=== PATIENT | female | born 1990 | race Caucasian/White ===

== ENCOUNTER → 2018-04-09 13:52 | Outpatient (CLI) | payer OTHER, SELFPAY ==
[2018-04-09 16:15] LABS: Progesterone Level 0.57 ng/mL (See Comment)
[2018-04-12 15:10] LABS: HPV Reflexed? NOT INDICATED
== END ==
PROVIDERS: Family Provider Family Medicine; PCP Family Medicine; Referring Provider Obstetrics & Gynecology; Visit Provider Obstetrics & Gynecology
DX: N97.0 Female infertility associated with anovulation (principal)
CPT/HCPCS: 84144; 87624; 88175; G0145

== ENCOUNTER → 2019-08-22 16:03 | Outpatient (CLI) | payer BC, SELFPAY ==
[2019-08-22 18:23] LABS: Progesterone Level 0.83 ng/mL (See Comment); T3 Total - Triiodothyronine 1.31 ng/mL (0.6-1.81)
[2019-08-22 18:27] LABS: T4 Total, Thyroxin 8.4 ug/dL (4.8-13.9)
[2019-08-26 14:07] LABS: Thyroid Peroxidase AB 11 IU/mL (0-34)
[2019-08-26 20:58] LABS: SAR-COV-2 IGG ANTIBODY Negative (Negative); Thyroglobulin Antibody < 1.0 IU/mL (0.0-0.9)
== END ==
PROVIDERS: PCP Family Medicine; Visit Provider Family Medicine
DX: N93.9 Abnormal uterine and vaginal bleeding, unspecified (principal); E28.2 Polycystic ovarian syndrome; E03.9 Hypothyroidism, unspecified; N92.0 Excessive and frequent menstruation with regular cycle; Z20.828 Contact with and (suspected) exposure to other viral communicable diseases
CPT/HCPCS: 36415; 84144; 84436; 84480; 84481; 86376; 86769; 86800

== ENCOUNTER 2019-09-26 13:50 | Emergency (ER) | payer BC, SELFPAY ==
[2019-08-28 09:39] VITALS: BMI 46.0
[2019-09-26 13:50] VITALS: BP 125/72; PULSE 65; RESP 16; TEMP 36.8; O2SAT 99; BMI 43.5
--- NOTE | 2019-09-26 14:02 | US_ITS ---
STUDY: ULTRASOUND TRANSVAGINAL CLINICAL: Female, 29 years old. HEAVY BLEEDING 2 DAYS LMP Monday09/23/2019 TECHNIQUE: Transvaginal COMPARISON: None. FINDINGS: Normal uterine size measuring 8.2 x 4.9 x 4.1 cm in maximal craniocaudal dimension. There are no myometrial masses. Normal endometrial thickness measuring 8 mm. There are no endometrial masses, and there is no fluid in the endometrial cavity. Normal uterine cervix. Normal right ovary, measuring 3.8 x 2.5 x 2.3 cm. There are multiple follicles without a dominant cyst. Normal left ovary, measuring 4.0 x 2.3 x 2.6 cm. There are multiple follicles without a dominant cyst. There is no free fluid in the pelvis. Polycystic ovary disease: No. US/Transvaginal Non- IMPRESSION: Normal transvaginal pelvic ultrasound. Electronically Signed: Sukh Payne MD at 16:07 EDT Tel , Service support ,
--- NOTE | 2019-09-26 14:05 | ED.DCSUM_ITS ---
History of Present Illness Chief Complaint: Vag Bleeding Onset: Days Context: Gradual Onset Timing: Intermittent Current Severity: Moderate Maximum Severity: Moderate Narrative: The patient is a 29-year-old female who presents to the emergency department with heavy vaginal bleeding. Patient states she began to have abnormal menstruation about 2 months ago. She was having very long menstrual periods. She states that she followed up with AUDIO PRODUCTION ENGINEER. She was prescribed progesterone. She took it until Monday, forgot the next 2 doses, and then began to have heavy bleeding. She states over the past 24 hours, she is gone through about a pad an hour. She has had some mild cramping but denies any pain. She does have a history of PCOS. She does not think she is . She has no history of anemia or blood dyscrasia. Prior similar symptoms: No Recent Illness/Hospitalization: No Past Medical History - Allergies and Home Meds Allergies/Adverse Reactions: Allergies doxycycline Adverse Reaction (Intermediate, Verified 09/26/19 13:53) vomiting/nausea Primary Care Physician: Patsy Giles MD [STAFF PHYSICIAN] - Prior records reviewed: Yes Past Medical History: None Surgical History: noncontributory Smoking Status: Never smoker Review of Systems General: Denies: Chills, Fever, Sweats Eyes: Denies: Visual changes - bilaterally, Diplopia ENT: Denies: Rhinorrhea, Sore throat Cardiovascular: Denies: Chest pain, Palpitations Respiratory: Denies: Dyspnea, Cough, Dyspnea on exertion Gastrointestinal: Denies: Abdominal pain, Nausea, Vomiting, Diarrhea, Melena, Hematochezia Genitourinary: Denies: Dysuria, Hematuria, Frequency Musculoskeletal: Denies: Back pain, Extremity Pain Skin: Denies: Rash, Wounds Neurological: Denies: Headache, Weakness, Numbness Physical Exam Vital Signs/Narrative: Vital Signs Temp Pulse Resp BP Pulse Ox 09/26/19 13:50 98.2 F 65 16 125/72 H 99 Inital Vital Signs reviewed: Yes General: Well nourished, Well developed, No Acute Distress Head: Normocephalic, Atraumatic Eyes: Perrl, EOMI ENT: Moist mucous membranes, No rhinorrhea Neck: Supple, Nontender Cardiovascular: Regular rate, Regular rhythm, No murmurs Respiratory: No distress, CTA bilaterally, Chest nontender Abdomen: Soft, Nontender, Nondistended, Normal bowel sounds Back: Nontender, Normal Inspection Extremities: Nontender, No edema Skin: Normal color, No rash Neurological: Alert, Oriented x3, Cranial nerves II-XII grossly intact, Normal Strength, Normal Sensation Psychological: Normal affect, Normal Mood Diagnostic/Tx/Re-eval Clinical Impression(s) from Imaging Studies Transvaginal US 09/26/19 14:02 IMPRESSION: Normal transvaginal pelvic ultrasound. Electronically Signed: Sukh Payne MD at 16:07 EDT Tel , Service support , Abnormal Lab Results 09/26/19 09/26/19 14:20 14:20 WBC 5.5 RBC 4.70 Hgb 13.8 Hct 41.7 MCV 88.7 MCH 29.4 MCHC 33.1 RDW Std Deviation 42.2 RDW Coeff of Janay 13.1 Plt Count 196 MPV 9.9 Immature Gran % (Auto) 0.400 Neut % (Auto) 55.8 Lymph % (Auto) 32.5 [place] % (Auto) 7.5 Eos % (Auto) 3.3 Baso % (Auto) 0.5 Absolute Neuts (auto) 3.1 Absolute Lymphs (auto) 1.78 Nucleated RBC % 0 Serum , Qual NEGATIVE - Medical Decision Making The patient presents with heavy vaginal bleeding. She had just finished progesterone therapy, but missed 2 doses. She is not hypotensive or tachycardic. Screening labs were obtained. Hemoglobin is normal. I did obtain ultrasound which shows normal endometrium. It does document her polycystic ovarian disease which is known. I discussed the patient with Dr. Ricardo Santos, her AUDIO PRODUCTION ENGINEER. She is comfortable with plan to resume the progesterone therapy and follow-up as an outpatient. Patient is agreeable with this plan and will be discharged home. Impression 1. Dysfunctional uterine bleeding ED Disposition - Plan for ED Patient: Instructions: ED Bleed Irregular Vaginal Referrals: Patsy Giles MD [STAFF PHYSICIAN] -
[2019-09-26] MEDS: 0.9% Normal Saline 1,000 ML 1000 ML IV (14:28)
[2019-09-26 14:29] LABS: Absolute Lymphocyte Count 1.78 X10^3/uL (0.83-4.51); Absolute Neutrophil Count 3.1 X10^3/uL (2.0-7.7); Basophil# 0.03 X10^3/uL; Basophil% 0.5 % (0-1); Eosinophil# 0.18 X10^3/uL; Eosinophils% 3.3 % (0-5); Hematocrit 41.7 % (37-47); Hemoglobin 13.8 g/dL (12.0-15.0); Lymphocyte # 1.78 X10^3/ul (4.0); Lymphocyte % 32.5 % (19-41); Mean Corp Hgb Conc 33.1 g/dL (32-36); Mean Corpuscular Hgb 29.4 pg (27.0-32.0); Mean Corpuscular Volume 88.7 fL (81-99); Mean Platelet Vol. 9.9 fl (6.2-12.0); Monocyte# 0.41 X10^3/uL; Monocyte% 7.5 % (0-10); NRBC Flagged by Analyzer 0 % (0-5); Neutrophil # 3.06 X10^3/uL (2.7-7.7); Neutrophil % 55.8 % (47-70); Platelet Count 196 K/mm3 (150-450); RBC Distribution Width CV 13.1 % (11.6-14.6); RBC Distribution Width SD 42.2 fl (35.1-43.9); White Blood Count 5.5 K/mm3 (4.4-11.0)
[2019-09-26 15:20] LABS: Internal QC Validated? YES +Cl - CLEAR BKGD; Pregnancy, Serum, hCG Quali. NEGATIVE Negative
[2019-09-26 16:36] VITALS: BP 110/77; PULSE 69; RESP 17; O2SAT 100
== END 2019-09-26 16:40 | disposition home or self-care (01) ==
LOC: ED 14:54
PROVIDERS: Emergency Provider Emergency Medicine; PCP Family Medicine
DX: N93.8 Other specified abnormal uterine and vaginal bleeding (principal)
CPT/HCPCS: 76830; 84703; 85025; 96360; 96361; 99283; J7030; A4216

== ENCOUNTER → 2020-01-13 14:47 | Outpatient (CLI) | payer OTHER, SELFPAY ==
[2019-08-28 09:39] VITALS: BMI 46.0
[2019-10-03 08:49] VITALS: BMI 43.5
--- NOTE | 2020-01-13 14:59 | US_ITS ---
STUDY: ULTRASOUND TRANSVAGINAL CLINICAL: Female, 29 years old. Infertility. TECHNIQUE: Transvaginal COMPARISON: 09/26/2019. FINDINGS: The uterus is anteverted, measuring 9.5 x 5.5 x 4.5 cm. There is no visualized myometrial mass. The endometrium measures 5 mm in thickness and is hyperechoic. There are no endometrial masses, and there is no fluid in the endometrial cavity. There is evidence of a permanent cerclage within the cervix. Normal right ovary, measuring 3.8 x 2.5 x 2.4 cm. There are multiple follicles without a dominant cyst. Normal left ovary, measuring 3.5 x 2.9 x 2.3 cm. There are multiple follicles without a dominant cyst. There is no free fluid in the pelvis. US/Transvaginal Non- IMPRESSION: 1. Multiple bilateral ovarian follicles. Question PCOS. 2. Normal uterus with evidence of cervical cerclage. 3. No major interval change when compared to the previous examination. Electronically Signed: Gómez Spence DO at 16:28 EDT Tel [phone], Service support ,
[2020-01-13 15:52] LABS: hCG Titer Quant., Serum < 1 mIU/mL (1-3)
[2020-01-13 16:32] LABS: Estradiol 194.7 pg/mL; Follicle Stimulating Hormone 4.1 mIU/mL; Luteinizing Hormone 12.4 mIU/mL; Thyroid Stim Hormone (TSH) 1.41 uIU/mL (0.358-3.74)
[2020-01-14 16:19] LABS: Progesterone Level 0.59 ng/mL (See Comment)
== END ==
PROVIDERS: Obstetrics & Gynecology; PCP Family Medicine; Referring Provider Nurse Practitioner Women's Health; Visit Provider Nurse Practitioner Women's Health
DX: N97.9 Female infertility, unspecified (principal)
CPT/HCPCS: 36415; 76830; 82670; 83001; 83002; 84144; 84443; 84702

== ENCOUNTER → 2020-01-20 14:44 | Outpatient (CLI) | payer OTHER, SELFPAY ==
[2019-10-03 08:49] VITALS: BMI 43.5
--- NOTE | 2020-01-20 14:45 | US_ITS ---
STUDY: ULTRASOUND OF THE FEMALE PELVIS - COMPLETE REASON FOR EXAM: Female, 29 years old. INFERTILITY, HX OF PERMANENT CERVICAL CERCLAGE LMP: 01/10/2020. TECHNIQUE: Transvaginal TECHNICAL QUALITY: Adequate. COMPARISON: Comparison is made with prior study dated 01/13/2020. FINDINGS: The uterus is anteverted and is in a midline position. The uterus measures 6.4 cm x 5.3 cm x 4.8 cm. Normal uterine cervix. The endometrium measures 10.2 mm in thickness, and is hyperechoic. There is no demonstrated endometrial mass. There is no demonstrated myometrial mass. I.U.D. - The patient does not have an I.U.D. once again, there is evidence of a cervical cerclage. The right ovary is visualized. The right ovary measures 2.8 cm x 2.6 cm x 2.9 cm. Multiple follicles are seen in the periphery of the right ovary. There is no visualized right adnexal mass or complex lesion. There is normal arterial and normal venous vascularity. The left ovary is visualized. The left ovary measures 2.6 cm x 3.4 cm x 2.1 cm. Multiple small follicles are seen within the periphery of the left ovary. There is no visualized left adnexal mass or complex lesion. There is normal arterial and normal venous vascularity. There is minimal fluid in the cul-de-sac. US/Transvaginal Non- IMPRESSION: Minimal amount of fluid in the pelvis. Multiple small follicles seen in the periphery of both ovaries. Electronically Signed: Gilmar Nath, at 15:33 EDT , Service support ,
[2020-01-20 17:26] LABS: Estradiol 562.1 pg/mL; Luteinizing Hormone 7.1 mIU/mL
[2020-01-20 17:35] LABS: Progesterone Level 0.25 ng/mL (See Comment)
== END ==
PROVIDERS: Obstetrics & Gynecology; PCP Family Medicine; Referring Provider Nurse Practitioner Women's Health; Visit Provider Nurse Practitioner Women's Health
DX: N97.9 Female infertility, unspecified (principal)
CPT/HCPCS: 36415; 76830; 82670; 83002; 84144

== ENCOUNTER → 2020-02-03 09:45 | Outpatient (CLI) | payer OTHER, SELFPAY ==
[2019-10-03 08:49] VITALS: BMI 43.5
[2020-02-03 12:54] LABS: Estradiol 343.3 pg/mL
[2020-02-03 13:28] LABS: hCG Titer Quant., Serum 30 mIU/mL (1-3)
[2020-02-03 19:57] LABS: Progesterone Level 80.12 ng/mL (See Comment)
== END ==
PROVIDERS: PCP Family Medicine
DX: E28.9 Ovarian dysfunction, unspecified (principal); Z33.1 Pregnant state, incidental
CPT/HCPCS: 36415; 82670; 84144; 84702

== ENCOUNTER → 2020-02-05 08:13 | Outpatient (CLI) | payer OTHER, SELFPAY ==
[2019-10-03 08:49] VITALS: BMI 43.5
[2020-02-05 08:49] LABS: hCG Titer Quant., Serum 58 mIU/mL (1-3)
[2020-02-05 09:21] LABS: Progesterone Level 62.43 ng/mL (See Comment)
== END ==
PROVIDERS: PCP Family Medicine; Referring Provider Obstetrics & Gynecology Reproductive Endocrinology; Visit Provider Obstetrics & Gynecology Reproductive Endocrinology
DX: Z32.00 Encounter for pregnancy test, result unknown (principal)
CPT/HCPCS: 36415; 84144; 84702

== ENCOUNTER → 2020-02-07 08:37 | Outpatient (CLI) | payer OTHER, SELFPAY ==
[2019-10-03 08:49] VITALS: BMI 43.5
[2020-02-07 09:16] LABS: hCG Titer Quant., Serum 103 mIU/mL (1-3)
[2020-02-07 09:26] LABS: Progesterone Level 52.75 ng/mL (See Comment)
[2020-02-07 10:49] LABS: Thyroid Stim Hormone (TSH) 2.23 uIU/mL (0.358-3.74)
== END ==
LOC: LAB.FUTURE 08:37 → LAB 08:43
PROVIDERS: Obstetrics & Gynecology; PCP Family Medicine; Referring Provider Family Medicine; Visit Provider Family Medicine
DX: E28.9 Ovarian dysfunction, unspecified (principal); Z33.1 Pregnant state, incidental
CPT/HCPCS: 36415; 82670; 84144; 84443; 84702

== ENCOUNTER → 2020-02-10 15:17 | Outpatient (CLI) | payer OTHER, SELFPAY ==
[2019-10-03 08:49] VITALS: BMI 43.5
[2020-02-10 16:11] LABS: hCG Titer Quant., Serum 328 mIU/mL (1-3)
[2020-02-10 16:15] LABS: Progesterone Level > 60.00 ng/mL (See Comment)
== END ==
PROVIDERS: PCP Family Medicine; Referring Provider Family Medicine; Visit Provider Family Medicine
DX: E28.9 Ovarian dysfunction, unspecified (principal); Z33.1 Pregnant state, incidental
CPT/HCPCS: 36415; 82670; 84144; 84702

== ENCOUNTER → 2020-02-14 07:25 | Outpatient (CLI) | payer OTHER, SELFPAY ==
[2019-10-03 08:49] VITALS: BMI 43.5
--- NOTE | 2020-02-14 07:26 | US_ITS ---
STUDY: FIRST TRIMESTER OBSTETRICAL ULTRASOUND REASON FOR EXAM: Female, 29 years old DATING / VIABILITY -- HCG 743 ON 02/12/20 -- HX OF INFERTILITY AND TREATMENT LMP: 01/23/2020 TECHNIQUE: Transvaginal TECHNICAL QUALITY: Adequate. PRIOR ULTRASOUND: Comparison is made with prior sonogram dated 01/20/2020. FINDINGS: There is visualization of a single gestational sac in a normal intrauterine position. The mean sac diameter (MSD) measures 6 mm, indicating an estimated gestational age (EGA) of 5 weeks, 2 days. The gestational sac shape is within normal limits. There is a visualized yolk sac. The yolk sac measures 1.8 mm. The placenta is non-visualized. The estimated gestation age (EGA) by LMP is 5 weeks, 1 days. The estimated date of delivery (KWAME) by LMP is 10/15/2020. The estimated gestation age (EGA) by US is 5 weeks, 2 days. The estimated date of delivery (KWAME) by US is 10/14/2020. The uterus measures 7.9 cm x 6.1 cm x 4.8 cm. There is no demonstrated uterine fibroid. The cervix is closed. A cerclage device is seen in the cervix. The right ovary measures 3.6 cm x 3.3 cm x 2.4 cm. There is no right ovarian cyst. There is no visualized right adnexal mass or complex lesion. The left ovary measures 3.5 cm x 2.8 cm x 2 cm. There is no left ovarian cyst. There is no visualized left adnexal mass or complex lesion. There is no fluid in the cul de sac. US/Transvaginal w/Preg US IMPRESSION: Intrauterine gestational sac with a yolk sac. Estimated gestational age is 5 weeks and 2 days. No pole is seen at this time. Electronically Signed: Gilmar Nath, at 9:08 EST , Service support ,
== END ==
PROVIDERS: PCP Family Medicine; Referring Provider Obstetrics & Gynecology; Visit Provider Obstetrics & Gynecology
DX: Z34.90 Encounter for supervision of normal pregnancy, unspecified, unspecified trimester (principal)
CPT/HCPCS: 76817

== ENCOUNTER → 2020-02-21 09:39 | Outpatient (CLI) | payer OTHER, SELFPAY ==
[2019-10-03 08:49] VITALS: BMI 43.5
--- NOTE | 2020-02-21 09:48 | US_ITS ---
STUDY: FIRST TRIMESTER OBSTETRICAL ULTRASOUND REASON FOR EXAM: Female, 29 years old DATING LMP: 01/09/2020. TECHNIQUE: Transvaginal TECHNICAL QUALITY: Adequate. PRIOR ULTRASOUND: Comparison is made with prior study dated 02/14/2020. FINDINGS: There is visualization of a single gestational sac in a normal intrauterine position. The mean sac diameter (MSD) measures 1.3 cm, indicating an estimated gestational age (EGA) of 6 weeks, 1 days. The gestational sac shape is within normal limits. There is a visualized yolk sac. The yolk sac measures 3.1 mm. The placenta is non-visualized. There is visualization of a live embryo. The crown-rump length (CRL) measures 3.1 mm, indicating an estimated gestational age (EGA) of 6 weeks, 0 days. There is demonstrated cardiac activity with a heart rate of 104 bpm. The estimated gestation age (EGA) by LMP is 6 weeks, 1 days. The estimated date of delivery (KWAME) by LMP is 10/15/2020. The estimated gestation age (EGA) by US is 6 weeks, 1 days. The estimated date of delivery (KWAME) by US is 10/15/2020. The uterus measures 8.4 cm x 5.8 cm x 4.9 cm. A cerclage is present. There is no demonstrated uterine fibroid. The cervix is closed. A 5 mm x 9 mm x 7 mm small subchorionic hematoma is seen superior to the gestational sac. The right ovary measures 3.4 cm x 2.4 cm x 2.2 cm. There is no right ovarian cyst. There is no visualized right adnexal mass or complex lesion. The left ovary measures 3.5 cm x 2.2 cm x 2.2 cm. There is no left ovarian cyst. There is no visualized left adnexal mass or complex lesion. There is no fluid in the cul de sac. US/Init OB < 14Wks US IMPRESSION: Single live intrauterine gestation with a mean gestational age of 6 weeks and 1 day. 5 mm x 9 mm x 7 mm subchorionic hematoma superior to the gestational sac. Electronically Signed: Gilmar Nath, at 13:59 EST , Service support ,
[2020-02-21 11:05] LABS: Estradiol 561.5 pg/mL; Progesterone Level 58.79 ng/mL (See Comment)
[2020-02-21 11:21] LABS: hCG Titer Quant., Serum 12059 mIU/mL (1-3)
== END ==
PROVIDERS: PCP Family Medicine; Referring Provider Obstetrics & Gynecology; Visit Provider Obstetrics & Gynecology
DX: Z34.90 Encounter for supervision of normal pregnancy, unspecified, unspecified trimester (principal)
CPT/HCPCS: 36415; 76801; 82670; 84144; 84702

== ENCOUNTER → 2020-02-28 14:24 | Outpatient (CLI) | payer OTHER, SELFPAY ==
[2019-10-03 08:49] VITALS: BMI 43.5
--- NOTE | 2020-02-28 14:38 | US_ITS ---
STUDY: FIRST TRIMESTER OBSTETRICAL ULTRASOUND REASON FOR EXAM: Female, 29 years old VIABILITY LMP: 10/15/2020 TECHNIQUE: Transvaginal TECHNICAL QUALITY: Adequate. PRIOR ULTRASOUND: Comparison is made with prior study dated 02/21/2020. FINDINGS: There is visualization of a single gestational sac in a normal intrauterine position. There is a visualized yolk sac. The yolk sac measures 3 mm. The placenta is non-visualized. There is visualization of a live embryo. The crown-rump length (CRL) measures 1 cm, indicating an estimated gestational age (EGA) of 7 weeks, 1 days. There is demonstrated cardiac activity with a heart rate of 1:30 bpm. The estimated gestation age (EGA) by LMP is 7 weeks, 1 days. The estimated date of delivery (KWAME) by LMP is 10/15/2020. The estimated gestation age (EGA) by US is 7 weeks, 1 days. The estimated date of delivery (KWAME) by US is 10/15/2020. The uterus measures 7.4 cm x 5.5 cm x 5 cm. There is no demonstrated uterine fibroid. The cervix is closed. The right ovary measures 3.9 cm x 2.4 cm x 2.3 cm. There is no right ovarian cyst. There is no visualized right adnexal mass or complex lesion. The left ovary measures 3.6 cm x 3 cm x 2.1 cm. There is no left ovarian cyst. There is no visualized left adnexal mass or complex lesion. There is no fluid in the cul de sac. US/Transvaginal w/Preg US IMPRESSION: Single live intrauterine gestation with a mean gestational age of 7 weeks and 1 day. Electronically Signed: Gilmar Nath, at 15:33 EST , Service support ,
== END ==
PROVIDERS: PCP Family Medicine; Referring Provider Obstetrics & Gynecology; Visit Provider Obstetrics & Gynecology
DX: Z34.90 Encounter for supervision of normal pregnancy, unspecified, unspecified trimester (principal)
CPT/HCPCS: 76817

== ENCOUNTER → 2020-03-06 09:49 | Outpatient (CLI) | payer OTHER, SELFPAY ==
[2019-10-03 08:49] VITALS: BMI 43.5
--- NOTE | 2020-03-06 09:57 | US_ITS ---
HISTORY: VIABILITY, follow-up COMPARISON: 02/28/2020 TECHNIQUE: Real-time transvaginal sonographic imaging of the pelvis was performed. # of images incl. paperwork: 57 FINDINGS: Number of intrauterine gestational sacs identified: 1. Gestational sac (size/shape): Not measured. Ovoid and regular [place]-rump length: 1.67 cm. heart rate: 154 Beats per minute. Yolk sac: visualized. Ultrasound age is 8 weeks 1 day, and ultrasound KWAME is 10/15/2020. LMP age is 8 weeks 1 day , and LMP KWAME is 10/15/2020. Small subchorionic hemorrhage with mild interval decreased size, 1.0 x 0.4 x 0.7 cm. Amniotic Fluid: Qualitatively normal. Uterus: No focal myomas. 8.0 x 5.7 x 7.1 cm. Adnexa: Normal bilateral ovaries with physiologic follicles. No adnexal masses. Cul-de-sac: No free fluid. US/Transvaginal w/Preg US IMPRESSION: 1. Single live intrauterine with gestational age of 8 weeks 1 day with KWAME of 10/15/2020. 2. Small subchorionic hemorrhage 1.0 x 0.4 x 0.7 cm, with mild interval decreased size. Follow-up pelvic ultrasound per PACE ANALYST recommendation. at 1707 Reported and signed by: Danny Nix MD Electronically Signed: Danny Nix MD at 17:06 EST Tel , Service support ,
== END ==
PROVIDERS: PCP Family Medicine; Referring Provider Obstetrics & Gynecology; Visit Provider Obstetrics & Gynecology
DX: O09.90 Supervision of high risk pregnancy, unspecified, unspecified trimester (principal); Z3A.00 Weeks of gestation of pregnancy not specified
CPT/HCPCS: 76817

== ENCOUNTER 2020-03-06 09:55 | Outpatient (RCR) | payer OTHER, SELFPAY ==
[2019-10-03 08:49] VITALS: BMI 43.5
[2020-02-12 10:50] LABS: hCG Titer Quant., Serum 743 mIU/mL (1-3)
[2020-02-14 08:49] LABS: Estradiol 447.3 pg/mL
[2020-02-14 09:03] LABS: hCG Titer Quant., Serum 1689 mIU/mL (1-3)
[2020-02-14 09:22] LABS: Progesterone Level 90.09 ng/mL (See Comment)
[2020-02-17 17:22] LABS: hCG Titer Quant., Serum 5022 mIU/mL (1-3)
[2020-02-28 16:20] LABS: Estradiol 676.3 pg/mL
[2020-02-28 16:23] LABS: hCG Titer Quant., Serum 38946 mIU/mL (1-3)
[2020-02-28 19:08] LABS: Progesterone Level 117.33 ng/mL (See Comment)
[2020-03-06 12:43] LABS: Estradiol 788.2 pg/mL
[2020-03-06 16:42] LABS: Progesterone Level 71.76 ng/mL (See Comment)
== END 2020-03-06 18:00 | disposition home or self-care (01) ==
LOC: LAB 09:55
PROVIDERS: Obstetrics & Gynecology; PCP Family Medicine; Referring Provider Family Medicine; Visit Provider Family Medicine
DX: Z33.1 Pregnant state, incidental (principal)
CPT/HCPCS: 36415; 82670; 84144; 84443; 84702

== ENCOUNTER → 2020-03-17 11:25 | Outpatient (CLI) | payer OTHER, SELFPAY ==
[2019-10-03 08:49] VITALS: BMI 43.5
--- NOTE | 2020-03-17 11:30 | US_ITS ---
STUDY: FIRST TRIMESTER OBSTETRICAL ULTRASOUND REASON FOR EXAM: Female, 29 years old VIABILITY LMP: 01/09/2020 TECHNIQUE: Transabdominal and Transvaginal TECHNICAL QUALITY: Adequate. PRIOR ULTRASOUND: None. FINDINGS: There is visualization of a single gestational sac in a normal intrauterine position. The mean sac diameter (MSD) measures 41 mm, indicating an estimated gestational age (EGA) of 9 weeks, 5 days. The gestational sac shape is within normal limits. There is a visualized yolk sac. The yolk sac measures 5 mm. The placenta is non-visualized. There is visualization of a live embryo. The crown-rump length (CRL) measures 29 mm, indicating an estimated gestational age (EGA) of 9 weeks, 6 days. There is demonstrated cardiac activity with a heart rate of 174 bpm. The estimated gestation age (EGA) by LMP is 9 weeks, 5 days. The estimated date of delivery (KWAME) by LMP is 10/15/2020. The estimated gestation age (EGA) by US is 9 weeks, 6 days. The estimated date of delivery (KWAME) by US is 10/14/2020. The uterus measures 13.8 x 8.3 x 6.1 cm. There is no demonstrated uterine fibroid. The cervix is closed. The right ovary measures 3.4 x 2.4 x 2.7 cm. There is no right ovarian cyst. There is no visualized right adnexal mass or complex lesion. The left ovary measures 3.9 x 3.2 x 2.0 cm. There is no left ovarian cyst. There is no visualized left adnexal mass or complex lesion. There is no fluid in the cul de sac. US/Init OB < 14Wks US IMPRESSION: Living intrauterine of the 9 weeks 6 days as described above. Electronically Signed: Sukh Payne MD at 9:07 EST Tel , Service support ,
== END ==
PROVIDERS: PCP Family Medicine; Referring Provider Family Medicine; Visit Provider Family Medicine
DX: R10.9 Unspecified abdominal pain (principal); Z33.1 Pregnant state, incidental
CPT/HCPCS: 76801

== ENCOUNTER → 2020-03-19 16:17 | Outpatient (CLI) | payer OTHER, SELFPAY ==
[2020-03-19 15:16] VITALS: BMI 45.3
[2020-03-19 17:23] LABS: NATERA MAILED SPECIMEN
[2020-03-19 18:24] LABS: Amphetamine Urine VISTA NEGATIVE (<1000 ng/mL); Barbiturate Urine VISTA NEGATIVE (< 200 ng/mL); Benzodiazepine Urine VISTA NEGATIVE (< 200 ng/mL); Cocaine Urine VISTA NEGATIVE (< 300 ng/mL); Ecstacy Urine VISTA NEGATIVE (< 500 ng/mL); Methadone Urine VISTA NEGATIVE (< 300 ng/mL); PCP Urine VISTA NEGATIVE (< 25 ng/mL); THC Urine VISTA NEGATIVE (< 50 ng/mL); Vista UDS pH Range 6
[2020-03-24 03:06] LABS: Chlamydia By Nucleic Acid AMP Negative (Negative)
[2020-03-24 11:17] LABS: Gonococcus By Nucleic Acid AMP Negative (Negative)
== END ==
PROVIDERS: PCP Family Medicine; Visit Provider Obstetrics & Gynecology
DX: O09.90 Supervision of high risk pregnancy, unspecified, unspecified trimester (principal); Z3A.00 Weeks of gestation of pregnancy not specified
CPT/HCPCS: 36415; 80307; 87086; 87088; 87491; 87591

== ENCOUNTER → 2020-04-07 10:18 | Outpatient (CLI) | payer OTHER, SELFPAY ==
[2020-03-19 15:16] VITALS: BMI 45.3
[2020-04-07 11:08] LABS: Absolute Lymphocyte Count 1.49 X10^3/uL (0.83-4.51); Absolute Neutrophil Count 5.4 X10^3/uL (2.0-7.7); Basophil# 0.03 X10^3/uL; Basophil% 0.4 % (0-1); Eosinophil# 0.23 X10^3/uL; Hematocrit 40.4 % (37-47); Hemoglobin 13.1 g/dL (12.0-15.0); Lymphocyte # 1.49 X10^3/ul (4.0); Lymphocyte % 19.5 % (19-41); Mean Corp Hgb Conc 32.4 g/dL (32-36); Mean Corpuscular Hgb 29.5 pg (27.0-32.0); Mean Platelet Vol. 9.7 fl (6.2-12.0); Monocyte# 0.49 X10^3/uL; Monocyte% 6.4 % (0-10); NRBC Flagged by Analyzer 0 % (0-5); Neutrophil # 5.35 X10^3/uL (2.7-7.7); Neutrophil % 70.2 % (47-70); Platelet Count 189 K/mm3 (150-450); RBC Distribution Width CV 13.8 % (11.6-14.6); Red Blood Count 4.44 M/mm3 (4.2-5.4); White Blood Count 7.6 K/mm3 (4.4-11.0)
[2020-04-07 11:22] LABS: Glucose Challenge Gest 1H 50g 95 mg/dL (70-140)
[2020-04-07 12:03] LABS: HIV - WCH Non-Reactive (Nonreactive); Hepatitis B Surface Antigen Non-Reactive (Nonreactive); Hepatitis C Antibody Non-Reactive (Nonreactive); Rubella IgG Reactive (Nonreactive)
[2020-04-09 03:40] LABS: Rapid Plasmin Reagin (RPR) NONREACTIVE (NONREACTIVE)
== END ==
PROVIDERS: PCP Family Medicine; Referring Provider Obstetrics & Gynecology; Visit Provider Obstetrics & Gynecology
DX: O09.90 Supervision of high risk pregnancy, unspecified, unspecified trimester (principal); O99.210 Obesity complicating pregnancy, unspecified trimester; Z3A.00 Weeks of gestation of pregnancy not specified
CPT/HCPCS: 36415; 82950; 85025; 86592; 86703; 86762; 86803; 86850; 86900; 86901; 87340

== ENCOUNTER 2020-05-24 13:40 | Outpatient (CLI) | payer OTHER, SELFPAY ==
[2020-05-21 08:53] VITALS: BMI 48.9
[2020-05-24 13:58] VITALS: BMI 50.2
[2020-05-24 14:39] LABS: ROM Internal Control Test YES-OK TO RESULT pt. (Internal QC); ROM Patient Test Negative (Negative)
[2020-05-24 14:56] VITALS: BP 133/77; PULSE 102
[2020-05-24 14:57] VITALS: TEMP 37.2
--- NOTE | 2020-05-25 12:31 | OB.TRI.PN ---
Progress Notes Date of Service: 05/24/20 Progress Note: Patient presents for triage evaluation secondary to leakage of fluid. Reported underwear feeling more damp. ROM negative. FHT: spot check wnl Assessment and plan: Heart tones normal, reassuring maternal and status patient discharged to home to follow-up at next scheduled visit. See problem list details for additional plan information. Laboratory Studies: Laboratory Tests 05/24/20 Range/Units 14:10 Vag Amniotic Fld Detect Negative (Negative)
== END 2020-05-24 15:15 | disposition home or self-care (01) ==
LOC: WPOUT 13:42 → WP 13:43
PROVIDERS: PCP Family Medicine; Visit Provider Obstetrics & Gynecology
DX: O47.9 False labor, unspecified (principal); Z3A.00 Weeks of gestation of pregnancy not specified
CPT/HCPCS: 84112; 99218; G0378

== ENCOUNTER 2020-06-03 15:00 | Outpatient (CLI) | payer OTHER, SELFPAY ==
[2020-06-03 11:08] VITALS: BMI 50.4
[2020-06-03 15:21] VITALS: BP 119/75; PULSE 112; TEMP 36.9; O2SAT 99
[2020-06-03 15:30] VITALS: BMI 50.6
--- NOTE | 2020-06-03 15:40 | US_ITS ---
STUDY: SECOND AND THIRD TRIMESTER OBSTETRICAL ULTRASOUND - LIMITED REASON FOR EXAM: Female, 30 years old intermittent vaginal bleeding. Chorio - amnion separation. Patient has cerclage. LMP: 01/23/2020 PRIOR ULTRASOUND: 03/17/2020, 03/06/2020, 02/28/2020, 02/21/2020 and 02/14/2020 TECHNIQUE: Transabdominal TECHNICAL QUALITY: Adequate. FINDINGS: There is a single intrauterine fetus. The fetus is in a transverse lie with the head on the maternal right side. There is demonstrated cardiac activity with a heart rate of 175 bpm. There is a normal amniotic fluid volume. The largest amniotic fluid pocket measures 6.4 cm. There is evidence of chorio-amnion separation. The placenta is fundal in location. There are Grade 1 placental changes. The cervix measures 3 cm in length. The cervix is closed. A cerclage is noted. Age by LMP: 20 weeks, 6 days. KWAME by LMP: 10/15/2020. age by initial US: 21 weeks, 0 days. KWAME by initial US: 10/14/2020. age by most recent US: 21 weeks, 0 days. KWAME by most recent US: 10/15/2019. Debris is seen within the urinary bladder. US/OB Limited (No Biometrics) IMPRESSION: 1. Live single intrauterine estimated gestational age is 21 weeks by initial ultrasound. 2. Chorio -amnion separation noted. 3. Closed cervix 3 cm. A cerclage is noted. 4. Fundal grade 1 placenta. 5. Transverse lie with head to the maternal right.. Electronically Signed: Gómez Spence DO at 20:43 EST Tel [phone], Service support ,
[2020-06-03] MEDS: 0.9% Saline Lock 10 ML Syringe IV (15:47)
[2020-06-03 16:02] LABS: Absolute Lymphocyte Count 1.62 X10^3/uL (0.83-4.51); Basophil# 0.03 X10^3/uL; Basophil% 0.3 % (0-1); Eosinophil# 0.37 X10^3/uL; Eosinophils% 4.3 % (0-5); Hematocrit 34.9 % (37-47); Hemoglobin 11.7 g/dL (12.0-15.0); Lymphocyte # 1.62 X10^3/ul (4.0); Lymphocyte % 18.8 % (19-41); Mean Corp Hgb Conc 33.5 g/dL (32-36); Mean Corpuscular Hgb 29.3 pg (27.0-32.0); Mean Corpuscular Volume 87.5 fL (81-99); Mean Platelet Vol. 9.6 fl (6.2-12.0); Monocyte# 0.57 X10^3/uL; Monocyte% 6.6 % (0-10); NRBC Flagged by Analyzer 0 % (0-5); Neutrophil # 5.96 X10^3/uL (2.7-7.7); Neutrophil % 69.3 % (47-70); Platelet Count 191 K/mm3 (150-450); RBC Distribution Width CV 12.9 % (11.6-14.6); RBC Distribution Width SD 40.6 fl (35.1-43.9); Red Blood Count 3.99 M/mm3 (4.2-5.4); White Blood Count 8.6 K/mm3 (4.4-11.0)
[2020-06-03 16:16] LABS: Prothrombin Time (Protime)PT. 12.6 SECONDS (11.7-14.9)
[2020-06-03 16:18] LABS: Fibrinogen 506 mg/dl (203-444)
[2020-06-03 16:49] LABS: Mucous, Urine 0 SEEN /hpf (<or=2+)
[2020-06-03 16:56] LABS: Color, Urine Yellow (Yellow); Glucose, Dipstick 100 mg/dl (Normal); Ketone-Dipstick Negative (Negative); Leukocyte Esterase-Dipstick 500 /ul (Negative); Nitrite-Dipstick Negative (Negative); Occult Blood-Urine 250 /ul (Negative); Protein-Dipstick Negative (Negative); Specific Gravity, Urine 1.015 (1.002-1.030); Urine Bilirubin Dipstick Negative (Negative); Urine Clarity Cloudy (Clear); Urine Urobilinogen Normal (Normal)
[2020-06-03 17:22] LABS: Hyaline Cast 0-5 SEEN /lpf (0-5)
[2020-06-03 17:24] LABS: Squamous Epithelial Cells - UA 5-10 SEEN /hpf (5-10); White Blood Cells 10-25 SEEN /hpf (0-5)
[2020-06-03 17:25] LABS: Red Blood Cells-Urine 10-25 SEEN /hpf (0-5)
[2020-06-03 17:26] LABS: Bacteria 1+ /hpf (None Seen)
[2020-06-03 17:27] LABS: Yeast-Urine 1+ /hpf (None Seen)
--- NOTE | 2020-06-03 17:42 | OB.TRI.HP_ITS ---
- Problem List (1) Subchorionic hemorrhage of placenta Status: Acute Qualifiers: Comment: Admitted at [facility] 05/10. Found to have subchorionic bleed measuring [id number]. Patient to see M 05/19. Plan modified bedrest. Stopped ASA. Plan weekly US to evaluate adequate fluid and viability. Plan weekly AFIs and NSTs starting at 28w. (2) Supervision of high risk , antepartum Status: Acute Comment: KWAME 10/15/20 PC: Danika(mar) Brooke Spouse: Justino History of Present Illness Date of Service: 06/03/20 Was patient seen by the physician?: Yes Reason For Visit: BLEEDING Date of Service: 06/03/20 Final KWAME: 10/15/20 Gestational age: 20 Weeks and 6 Days History of Present Illness: at 20 weeks gestation presenting to triage for vaginal bleeding. Patient has an abdominal cerclage in place and has a known large subchorionic bleed. Sh keny has been having primarily dark brown blood, but reports that this afternoon when she was wiping she noticed bright red blood on the toilet paper as well as bright red blood on her pad. Has not noticed an increase in the amount of dark brown blood. Reports minimal cramping. Allergies doxycycline Adverse Reaction (Intermediate, Verified 06/03/20 15:32) vomiting/nausea - Pertinent Past Medical History Medical History: Past Medical History (Last Reviewed 06/03/20 @ 11:08 by Roseline Espitia) PCOS (polycystic ovarian syndrome) (Acute) ovarian drilling Surgical History: Past Surgical History (Last Reviewed 06/03/20 @ 11:08 by Roseline Espitia) Cervical cerclage suture present (Acute) transabd cerclage H/O dilation and curettage Laboratory Studies: Laboratory Tests 06/03/20 06/03/20 06/03/20 Range/Units 16:35 15:50 15:50 WBC 8.6 (4.4-11.0) K/mm3 RBC 3.99 L (4.2-5.4) M/mm3 Hgb 11.7 L (12.0-15.0) g/dL Hct 34.9 L (37-47) % MCV 87.5 (81-99) fL MCH 29.3 (27.0-32.0) pg MCHC 33.5 (32-36) g/dL RDW Std Deviation 40.6 (35.1-43.9) fl RDW Coeff of Janay 12.9 (11.6-14.6) % Plt Count 191 (150-450) K/mm3 MPV 9.6 (6.2-12.0) fl Immature Gran % (Auto) 0.700 (0.0-0.9) % Neut % (Auto) 69.3 (47-70) % Lymph % (Auto) 18.8 L (19-41) % [place] % (Auto) 6.6 (0-10) % Eos % (Auto) 4.3 (0-5) % Baso % (Auto) 0.3 (0-1) % Absolute Neuts (auto) 6.0 (2.0-7.7) X10^3/uL Absolute Lymphs (auto) 1.62 (0.83-4.51) X10^3/uL Nucleated RBC % 0 (0-5) % PT 12.6 (11.7-14.9) SECONDS INR 1.0 APTT 24.0 L (24.1-36.2) Seconds Fibrinogen 506 H (203-444) mg/dl Urine Color Yellow (Yellow) Urine Clarity Cloudy (Clear) Urine pH 7.0 (5.0 - 8.0) Ur Specific [place] 1.015 (1.002-1.030) Urine Protein Negative (Negative) mg/dl Urine Glucose (UA) 100 H (Normal) mg/dl Urine Ketones Negative (Negative) mg/dl Urine Occult Blood 250 H (Negative) /ul Urine Nitrite Negative (Negative) Urine Bilirubin Negative (Negative) mg/dL Urine Urobilinogen Normal (Normal) mg/dl Ur Leukocyte Esterase 500 H (Negative) /ul Urine RBC 10-25 SEEN (0-5) /hpf Urine WBC 10-25 SEEN (0-5) /hpf Ur Squamous Epith Cells 5-10 SEEN (5-10) /hpf Urine Bacteria 1+ (None Seen) /hpf Hyaline Casts 0-5 SEEN (0-5) /lpf Urine Mucus 0 SEEN (<or=2+) /hpf Urine Yeast 1+ (None Seen) /hpf Review of Systems Constitutional: Denies: Chills, Fever Cardiovascular: Denies: Light Headedness Respiratory: Denies: Shortness of Breath Gastrointestinal: Denies: Nausea Gynecological: Reports: Vaginal bleeding, Vaginal discharge. Denies: Vaginal itching Physical Exam Vitals: Vital Signs Temp Pulse BP Pulse Ox 98.5 F 112 H 119/75 99 06/03/20 15:21 06/03/20 15:21 06/03/20 15:21 06/03/20 15:21 General: Alert, Oriented x3, Cooperative, No apparent distress, Well developed, Well nourished HEENT: Atraumatic, PERRLA, EOMI, Normocephalic Lungs: Normal air movement Abdomen: Soft, Non Tender, Non-Distended Extremities:: No edema Neurological: Cranial nerves II-XII grossly intact, Neuro grossly intact ALTERATION INSPECTOR: Normal external genitalia Cervix Dilation (cm): 0 - Scant dark brown blood in the vault no active bleeding Station: -3 Effacement (%): 40 NST - FHR Rate Baby A Baseline: 150 Variability:: Moderate Accelerations:: 15 x 15 Decelerations:: None NST Reactive:: Appropriate for gestational age FHR Category:: Category I Impression/Plan 30-year-old G3, P2 at 20 weeks gestation presenting for vaginal bleeding Subchorionic bleed -Patient with known subchorionic bleed. Presents for vaginal bleeding. No active bleeding on exam. Small amount of dark brown old blood in the vault. No bright red bleeding -Vital signs stable -CBC and coags normal -Ultrasound shows cervical length of 30 mm with subchorionic bleed stable in size. -Reassurance provided. We will see patient back in the office as scheduled. Discussed reasons to call. Multi Select Codes - Visit Charges Office Visit/Consults: 11251 OV L3 Est - Urinary/Genital Urinary/Genital CPT Codes: 60803-25 non-stress test Interp
== END 2020-06-03 17:46 | disposition home or self-care (01) ==
LOC: WPOUT 15:07 → WP 15:07
PROVIDERS: PCP Family Medicine; Referring Provider Obstetrics & Gynecology; Visit Provider Obstetrics & Gynecology
DX: O46.92 Antepartum hemorrhage, unspecified, second trimester (principal); Z3A.20 20 weeks gestation of pregnancy
CPT/HCPCS: 36415; 59025; 59050; 76815; 76817; 81001; 85025; 85384; 85610; 85730; 99218; A4216; G0378

== ENCOUNTER 2020-06-05 07:25 | Outpatient (CLI) | payer OTHER, SELFPAY ==
[2020-06-05 07:38] VITALS: TEMP 36.6
[2020-06-05 07:50] VITALS: PULSE 107; O2SAT 97
[2020-06-05 07:51] VITALS: TEMP 36.6; O2SAT 99
[2020-06-05 07:52] VITALS: BP 122/69; PULSE 104
[2020-06-05 07:55] VITALS: BMI 50.3
[2020-06-05 08:35] LABS: Mucous, Urine 0 SEEN /hpf (<or=2+)
[2020-06-05 08:38] LABS: Color, Urine Yellow (Yellow); Glucose, Dipstick Normal (Normal); Ketone-Dipstick Negative (Negative); Leukocyte Esterase-Dipstick 500 /ul (Negative); Nitrite-Dipstick Negative (Negative); Occult Blood-Urine 250 /ul (Negative); Protein-Dipstick 15 mg/dl (Negative); Specific Gravity, Urine 1.015 (1.002-1.030); Urine Bilirubin Dipstick Negative (Negative); Urine Clarity Sl. Cloudy (Clear); Urine Urobilinogen Normal (Normal); Urine pH 6.5 (5.0 - 8.0)
[2020-06-05 08:48] LABS: Bacteria 1+ /hpf (None Seen); Squamous Epithelial Cells - UA 0-5 SEEN /hpf (5-10)
[2020-06-05 08:49] LABS: White Blood Cells 0-5 SEEN /hpf (0-5)
[2020-06-05 08:50] LABS: Red Blood Cells-Urine 0-5 SEEN /hpf (0-5)
--- NOTE | 2020-06-05 17:06 | OB.TRI.NOTE ---
- Problem List (1) Subchorionic hemorrhage of placenta Status: Acute Qualifiers: Comment: Admitted at [facility] 05/10. Found to have subchorionic bleed measuring [id number]. Patient to see [facility] 05/19. Plan modified bedrest. Stopped ASA. Plan weekly US to evaluate adequate fluid and viability. Plan weekly AFIs and NSTs starting at 28w. (2) Cervical cerclage suture present Status: Acute Qualifiers: Comment: transabd cerclage (3) Supervision of high risk , antepartum Status: Acute Comment: KWAME 10/15/20 PC: Danika(mar) Brooke Spouse: Justino History of Present Illness Date of Service: 06/05/20 Was patient seen by the physician?: Yes Reason For Visit: R/O BLEEDING Date of Service: 06/05/20 Final KWAME: 10/15/20 Gestational age: 21 Weeks and 1 Days History of Present Illness: 30-year-old G4, P1 at 21 weeks gestation presenting with vaginal bleeding. Patient has a known large subchorionic hemorrhage as well as an abdominal cerclage in place. Patient reports that she noticed bright red vaginal bleeding when she would use the restroom this morning. Reports bleeding now more dark brown. Reports overall bleeding not more than she has been having. Denies lightheadedness, dizziness. Reports 1 episode of cramping since this started, but not currently having pain. Allergies doxycycline Adverse Reaction (Intermediate, Verified 06/05/20 07:57) vomiting/nausea - Pertinent Past Medical History Medical History: Past Medical History (Last Reviewed 06/03/20 @ 11:08 by Roseline Espitia) PCOS (polycystic ovarian syndrome) (Acute) ovarian drilling Surgical History: Past Surgical History (Last Reviewed 06/03/20 @ 11:08 by Roseline Espitia) Cervical cerclage suture present (Acute) transabd cerclage H/O dilation and curettage Laboratory Studies: Laboratory Tests 06/05/20 Range/Units 08:20 Urine Color Yellow (Yellow) Urine Clarity Sl. Cloudy (Clear) Urine pH 6.5 (5.0 - 8.0) Ur Specific [place] 1.015 (1.002-1.030) Urine Protein 15 H (Negative) mg/dl Urine Glucose (UA) Normal (Normal) mg/dl Urine Ketones Negative (Negative) mg/dl Urine Occult Blood 250 H (Negative) /ul Urine Nitrite Negative (Negative) Urine Bilirubin Negative (Negative) mg/dL Urine Urobilinogen Normal (Normal) mg/dl Ur Leukocyte Esterase 500 H (Negative) /ul Urine RBC 0-5 SEEN (0-5) /hpf Urine WBC 0-5 SEEN (0-5) /hpf Ur Squamous Epith Cells 0-5 SEEN (5-10) /hpf Urine Bacteria 1+ (None Seen) /hpf Urine Mucus 0 SEEN (<or=2+) /hpf Review of Systems Constitutional: Denies: Chills, Fever Gastrointestinal: Reports: Abdominal Pain. Denies: Constipation, Diarrhea Genitourinary: Denies: Dysuria, Frequency, Hematuria, Urgency Gynecological: Reports: Vaginal bleeding. 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 -Had bright red bleeding at home, but has now stopped. No pain. [place] quiet -Cervix closed thick and high -No active bleeding on exam. Dark brown blood noted in the vault. No bleeding on Valsalva. -Vital signs stable -Reassurance provided. Bleeding cautions reviewed with patient. Discharged home in stable condition. Multi Select Codes - Visit Charges Office Visit/Consults: 16027 OV L3 Est
== END 2020-06-05 08:15 | disposition home or self-care (01) ==
LOC: WPOUT 07:31 → WP 07:31
PROVIDERS: Obstetrics & Gynecology; PCP Family Medicine; Referring Provider Obstetrics & Gynecology; Visit Provider Obstetrics & Gynecology
DX: O46.8X2 Other antepartum hemorrhage, second trimester (principal); Z3A.21 21 weeks gestation of pregnancy
CPT/HCPCS: 59050; 81001; 87086; 87088; 99218; G0378

== ENCOUNTER 2020-07-04 21:19 | Outpatient (CLI) | payer OTHER, SELFPAY ==
[2020-07-01 10:17] VITALS: BMI 52.0
[2020-07-04 21:44] VITALS: BP 119/67; PULSE 102; TEMP 36.8; O2SAT 98
[2020-07-04 21:52] VITALS: BMI 52.6
[2020-07-04 22:35] LABS: ROM Internal Control Test YES-OK TO RESULT pt. (Internal QC); ROM Patient Test Negative (Negative)
--- NOTE | 2020-07-06 17:58 | OB.TRI.PN ---
Progress Notes Date of Service: 07/04/20 Progress Note: Patient presents for triage evaluation secondary to questionable LOF. ROM was negative FHT: Moderate variability reactive no decelerations category I tracing [place]: No Contractions Assessment and plan: Reactive NST, reassuring maternal and status patient discharged to home to follow-up at next scheduled visit. See problem list details for additional plan information. Laboratory Studies: Laboratory Tests 07/04/20 Range/Units 22:00 Vag Amniotic Fld Detect Negative (Negative) Multi Select Codes - Urinary/Genital Urinary/Genital CPT Codes: 42844-27 non-stress test Interp
== END 2020-07-04 23:10 | disposition home or self-care (01) ==
LOC: WPOUT 21:25 → WP 21:26
PROVIDERS: PCP Family Medicine; Visit Provider Obstetrics & Gynecology
DX: O26.899 Other specified pregnancy related conditions, unspecified trimester (principal); E86.9 Volume depletion, unspecified; Z3A.00 Weeks of gestation of pregnancy not specified
CPT/HCPCS: 59025; 59050; 84112; 99218; G0378

== ENCOUNTER → 2020-07-20 13:58 | Outpatient (CLI) | payer OTHER, SELFPAY ==
[2020-07-20 13:12] VITALS: BMI 53.2
[2020-07-20 15:13] LABS: Absolute Lymphocyte Count 1.53 X10^3/uL (0.83-4.51); Absolute Neutrophil Count 5.7 X10^3/uL (2.0-7.7); Basophil# 0.02 X10^3/uL; Basophil% 0.2 % (0-1); Eosinophil# 0.23 X10^3/uL; Eosinophils% 2.8 % (0-5); Hematocrit 36.1 % (37-47); Hemoglobin 11.5 g/dL (12.0-15.0); Lymphocyte # 1.53 X10^3/ul (4.0); Lymphocyte % 18.8 % (19-41); Mean Corp Hgb Conc 31.9 g/dL (32-36); Mean Corpuscular Volume 84.7 fL (81-99); Mean Platelet Vol. 10.1 fl (6.2-12.0); Monocyte# 0.59 X10^3/uL; Monocyte% 7.3 % (0-10); NRBC Flagged by Analyzer 0 % (0-5); Neutrophil # 5.68 X10^3/uL (2.7-7.7); Neutrophil % 69.9 % (47-70); Platelet Count 196 K/mm3 (150-450); RBC Distribution Width CV 14.3 % (11.6-14.6); RBC Distribution Width SD 43.8 fl (35.1-43.9); Red Blood Count 4.26 M/mm3 (4.2-5.4); White Blood Count 8.1 K/mm3 (4.4-11.0)
[2020-07-20 15:47] LABS: ALB/GLOB Ratio 0.6 RATIO (0.9-2.4); AST(SGOT) 21 U/L (15-37); Alanine Aminotransfer ALT/SGPT 13 U/L (13-56); Albumin, Serum 2.6 g/dL (3.2-5.0); Alkaline Phosphatase 97 U/L (45-117); Anion Gap 10 (5-15); BUN 9 mg/dL (7-18); BUN/Creat Ratio 9.6 RATIO (10-20); Calcium,Total 8.5 mg/dL (8.5-10.1); Chloride 102 mmol/L (98-107); Creatinine, Serum 0.94 mg/dL (0.55-1.02); EST Glomerular Filtration Rate 74 mL/min (>60); Est Glom Filt Rate - Afr Amer 90 mL/min (>60); Globulin 4.3 g/dL (2.2-4.2); Glucose 316 mg/dL (74-106); Potassium 3.9 mmol/L (3.5-5.1); Protein, Total 6.9 g/dL (6.4-8.2); Sodium Level 133 mmol/L (136-145)
[2020-07-20 18:09] LABS: Protein, Urine (Random) 23.7 mg/dL (<11.9); Protein:Creat Ratio 343 mg/g CRE (0-200)
== END ==
PROVIDERS: PCP Family Medicine; Referring Provider Nurse Practitioner Women's Health; Visit Provider Nurse Practitioner Women's Health
DX: O09.90 Supervision of high risk pregnancy, unspecified, unspecified trimester (principal); R10.11 Right upper quadrant pain; R30.9 Painful micturition, unspecified; Z3A.00 Weeks of gestation of pregnancy not specified
CPT/HCPCS: 36415; 80053; 82570; 84156; 85025; 87086; 87088

== ENCOUNTER → 2020-07-22 09:29 | Outpatient (CLI) | payer OTHER, SELFPAY ==
[2020-07-20 13:12] VITALS: BMI 53.2
[2020-07-22 11:27] LABS: Absolute Lymphocyte Count 1.25 X10^3/uL (0.83-4.51); Absolute Neutrophil Count 5.3 X10^3/uL (2.0-7.7); Basophil# 0.03 X10^3/uL; Basophil% 0.4 % (0-1); Eosinophil# 0.17 X10^3/uL; Eosinophils% 2.3 % (0-5); Hematocrit 35.5 % (37-47); Hemoglobin 11.4 g/dL (12.0-15.0); Lymphocyte # 1.25 X10^3/ul (4.0); Lymphocyte % 16.9 % (19-41); Mean Corp Hgb Conc 32.1 g/dL (32-36); Mean Corpuscular Hgb 27.5 pg (27.0-32.0); Mean Corpuscular Volume 85.5 fL (81-99); Mean Platelet Vol. 10.1 fl (6.2-12.0); Monocyte# 0.55 X10^3/uL; Monocyte% 7.4 % (0-10); NRBC Flagged by Analyzer 0 % (0-5); Neutrophil # 5.33 X10^3/uL (2.7-7.7); Neutrophil % 71.9 % (47-70); Platelet Count 179 K/mm3 (150-450); RBC Distribution Width CV 14.3 % (11.6-14.6); RBC Distribution Width SD 43.6 fl (35.1-43.9); Red Blood Count 4.15 M/mm3 (4.2-5.4); White Blood Count 7.4 K/mm3 (4.4-11.0)
[2020-07-22 11:44] LABS: Glucose Challenge Gest 1H 50g 364 mg/dL (70-140)
== END ==
PROVIDERS: PCP Family Medicine; Referring Provider Obstetrics & Gynecology; Visit Provider Obstetrics & Gynecology
DX: O09.90 Supervision of high risk pregnancy, unspecified, unspecified trimester (principal); O26.899 Other specified pregnancy related conditions, unspecified trimester; N89.8 Other specified noninflammatory disorders of vagina; Z3A.00 Weeks of gestation of pregnancy not specified
CPT/HCPCS: 36415; 82950; 85025; 87070; 87077; 87186; 87205

== ENCOUNTER 2020-07-30 12:23 | Outpatient (CLI) | payer OTHER, MEDICAID, SELFPAY ==
[2020-07-30 11:14] VITALS: BMI 53.4
--- NOTE | 2020-07-30 12:25 | US_ITS ---
STUDY: OBSTETRICAL ULTRASOUND - BIOPHYSICAL PROFILE REASON FOR EXAM: Female, 30 years old Non-stress test nonreactive LMP: 01/09/2020. PRIOR ULTRASOUND: Comparison is made with prior examination of 06/03/2020. TECHNIQUE: Transabdominal TECHNICAL QUALITY: Adequate. FINDINGS: There is a single intrauterine fetus. The fetus is in a transverse lie with the head on the maternal right side. There is demonstrated cardiac activity with a heart rate of 142 bpm. There is a normal amniotic fluid volume. The largest amniotic fluid pocket measures 5.3 cm x 4.7 cm. The amniotic fluid index (INÉS) is within normal limits. The placenta is fundal in location. There are Grade 1 placental changes. Age by LMP: 29 weeks, 0 days. KWAME by LMP: 10/15/2020. BIOPHYSICAL PROFILE: Breathing Movements (FBM): 0 Gross Body Movements (GBM): 2 Tone (FT): 2 Amniotic Fluid Volume (AFV): 2 TOTAL SCORE: / 8 US/Biophysical Prof W/O Non Stres IMPRESSION: biophysical profile of 09/15. Electronically Signed: Gilmar Nath MD at 13:31 EDT , Service support ,
[2020-07-30 13:32] VITALS: BP 124/66; PULSE 112
[2020-07-30] MEDS: Lactated Ringers 1,000 ML 999 ML IV ×2 (13:40→14:54)
[2020-07-30 13:46] LABS: Bedside Glucose 91 mg/dL (70-110)
[2020-07-30 13:49] VITALS: TEMP 36.7
== END 2020-07-30 16:00 | disposition home or self-care (01) ==
LOC: US 12:24 → WP 13:29
PROVIDERS: PCP Family Medicine; Visit Provider Obstetrics & Gynecology
DX: O28.8 Other abnormal findings on antenatal screening of mother (principal); Z3A.00 Weeks of gestation of pregnancy not specified
CPT/HCPCS: 96365; 96366; 59025; 59050; 76819; 82962; 99218; J7120; G0378

== ENCOUNTER 2020-08-06 15:50 | Outpatient (CLI) | payer OTHER, MEDICAID, SELFPAY ==
[2020-08-06 16:00] VITALS: BMI 53.7
[2020-08-06 16:20] VITALS: BP 143/76; PULSE 103
[2020-08-06 16:34] VITALS: TEMP 37.3
[2020-08-06 16:39] VITALS: BP 126/87; PULSE 105
--- NOTE | 2020-08-07 08:18 | OB.TRI.PN_ITS ---
Progress Notes Progress Note: Patient presents for triage evaluation secondary to NST FHT: Moderate variability reactive no decelerations category I tracing [place]: No Contractions Assessment and plan: Reactive NST, reassuring maternal and status patient discharged to home to follow-up next scheduled visit. See problem list details for additional plan information. 52xxx-59xxx: 97431-39 non-stress test Interp
== END 2020-08-06 16:45 ==
LOC: WPOUT 15:54 → OBT 15:55
PROVIDERS: PCP Family Medicine; Visit Provider Obstetrics & Gynecology
DX: O47.9 False labor, unspecified (principal); Z3A.00 Weeks of gestation of pregnancy not specified
CPT/HCPCS: 59025; 59050; 99218; G0378

== ENCOUNTER → 2020-08-12 16:06 | Outpatient (CLI) | payer OTHER, MEDICAID, SELFPAY ==
[2020-08-12 13:24] VITALS: BMI 53.7
--- NOTE | 2020-08-12 16:10 | US_ITS ---
STUDY: FIRST TRIMESTER OBSTETRICAL ULTRASOUND REASON FOR EXAM: Female, 30 years old. Cervical length only. LMP: 01/09/2020. TECHNIQUE: Transvaginal TECHNICAL QUALITY: Adequate. PRIOR ULTRASOUND: 07/30/2020. FINDINGS: A limited study was performed to evaluate the cervix. The cervix measures 4.7 cm in length and appears closed. And seen is a single intrauterine in a transverse lie with head to the maternal right. heart rate is 133 bpm. The estimated gestation age (EGA) by LMP is 30 weeks, 6 days. The estimated date of delivery (KWAME) by LMP is 10/15/2020. US/Transvaginal w/Preg US IMPRESSION: 1. Closed cervix at 4.67 cm in length. 2. Live intrauterine .. Electronically Signed: Gómez Spence DO at 17:06 EDT Tel [phone], Service support ,
== END ==
PROVIDERS: PCP Family Medicine; Referring Provider Obstetrics & Gynecology; Visit Provider Obstetrics & Gynecology
DX: O34.32 Maternal care for cervical incompetence, second trimester (principal); Z3A.00 Weeks of gestation of pregnancy not specified
CPT/HCPCS: 76817

== ENCOUNTER 2020-08-20 12:05 | Outpatient (CLI) | payer OTHER, MEDICAID, SELFPAY ==
[2020-08-20 10:49] VITALS: BMI 53.7
[2020-08-20 11:51] LABS: ROM Internal Control Test YES-OK TO RESULT pt. (Internal QC); ROM Patient Test Negative (Negative)
[2020-08-20 12:31] VITALS: BMI 53.8
[2020-08-20 12:44] VITALS: TEMP 37.2
[2020-08-20 12:45] VITALS: BP 119/64
[2020-08-20 12:46] VITALS: PULSE 190; O2SAT 83
--- NOTE | 2020-08-20 12:57 | US_ITS ---
STUDY: SECOND AND THIRD TRIMESTER OBSTETRICAL ULTRASOUND - LIMITED REASON FOR EXAM: Female, 30 years old CERVICAL LENGTH . History of cerclage of the internal os. LMP: 01/09/2020. PRIOR ULTRASOUND: Comparison is made with prior examination dated 08/12/2020. TECHNIQUE: Transabdominal and Transvaginal TECHNICAL QUALITY: Adequate. FINDINGS: There is a single intrauterine fetus. The fetus is in an transverse lie with the head on the maternal left side. There is demonstrated cardiac activity with a heart rate of 138 bpm. There is a normal amniotic fluid volume. The largest amniotic fluid pocket measures 7.2 cm. The amniotic fluid index (INÉS) is 21.1 cm. The placenta is anterior in location and is not low lying. There are Grade 2 placental changes. The cervix measures 3.4 cm in length. Findings suggestive of a small area of funneling in the proximal internal os. BIOMETRY: Age by LMP: 32 weeks, 0 days. KWAME by LMP: 10/15/2020.. US/OB Limited (No Biometrics) IMPRESSION: Normal amniotic fluid index. Prior cervical cerclage. Small area of funneling in the proximal internal os. Electronically Signed: Gilmar Nath MD at 14:18 EDT , Service support ,
[2020-08-20] MEDS: Betamethasone/Betamethasone 30 MG/5 ML Vial 12 MG IM (13:57)
--- NOTE | 2020-08-20 14:24 | OB.TRI.PN ---
Progress Notes Date of Service: 08/20/20 Progress Note: Patient presents for triage evaluation secondary to contractions FHT: 140 Moderate variability reactive no decelerations category I tracing [place]: irritability Contractions Assessment and plan: threated PTL Reactive NST, reassuring maternal and status patient discharged to home to follow-up asc sheudled. cervix still closed and long no additional bleeding. See problem list details for additional plan information. Laboratory Studies: Laboratory Tests 08/20/20 Range/Units 11:20 Vag Amniotic Fld Detect Negative (Negative) Assessment & Plan Assessment/Plan (1) Threatened labor: Procedures Urinary/Genital 52xxx-59xxx: 17234-62 non-stress test Interp
[2020-08-20 14:46] VITALS: BP 132/78; PULSE 96
== END 2020-08-20 14:50 | disposition home or self-care (01) ==
LOC: WPOUT 12:15 → LABSPEC 12:19 → WPOUT 12:20 → WP 12:20
PROVIDERS: Obstetrics & Gynecology; PCP Family Medicine; Referring Provider Obstetrics & Gynecology; Visit Provider Obstetrics & Gynecology
DX: O62.9 Abnormality of forces of labor, unspecified (principal); O60.00 Preterm labor without delivery, unspecified trimester; Z3A.00 Weeks of gestation of pregnancy not specified
CPT/HCPCS: 59025; 59050; 76815; 76817; 84112; 96372; 99218; G0378; J0702

== ENCOUNTER 2020-08-21 13:38 | Outpatient (CLI) | payer OTHER, MEDICAID, SELFPAY ==
[2020-08-20 12:31] VITALS: BMI 53.8
[2020-08-21] MEDS: Betamethasone/Betamethasone 30 MG/5 ML Vial 12 MG IM (14:15)
--- NOTE | 2020-08-24 21:20 | OB.TRI.PN ---
Progress Notes Date of Service: 08/21/20 Progress Note: vaginal bleeding in [place] given for prematuirty shot 2 Assessment & Plan Assessment/Plan (1) Threatened labor: QUALIFIERS: Trimester: third trimester Qualified Code(s): O47.03 - False labor before 37 completed weeks of gestation, third trimester Procedures Urinary/Genital 52xxx-59xxx: No Charge
== END 2020-08-21 14:20 ==
LOC: WPOUT 13:39 → WP 13:40
PROVIDERS: PCP Family Medicine; Visit Provider Obstetrics & Gynecology
DX: O47.00 False labor before 37 completed weeks of gestation, unspecified trimester (principal); Z3A.00 Weeks of gestation of pregnancy not specified
CPT/HCPCS: 96372; 99218; G0378; J0702

== ENCOUNTER → 2020-09-08 10:09 | Outpatient (CLI) | payer OTHER, MEDICAID, SELFPAY ==
[2020-08-27 11:08] VITALS: BMI 53.8
[2020-09-03 10:18] VITALS: BMI 53.8
--- NOTE | 2020-09-08 10:11 | US_ITS ---
STUDY: OBSTETRICAL ULTRASOUND - BIOPHYSICAL PROFILE REASON FOR EXAM: Female, 30 years old WELL BEING -- CX LENGTH LMP: 01/09/2020. PRIOR ULTRASOUND: Comparison is made with prior study dated 08/20/2020. TECHNIQUE: Transabdominal TECHNICAL QUALITY: Adequate. FINDINGS: There is a single intrauterine fetus. The fetus is in a cephalic presentation. There is demonstrated cardiac activity with a heart rate of 155 bpm. There is a normal amniotic fluid volume. The largest amniotic fluid pocket measures 7.6 cm. The amniotic fluid index (INÉS) is 22 cm. This is upper limits of normal. The placenta is anterior in location and is not low lying. There are Grade 1 placental changes. Age by LMP: 34 weeks, 5 days. KWAME by LMP: 10/15/2020. Cervical length measures 3.3 cm. BIOPHYSICAL PROFILE: Breathing Movements (FBM): 2 Gross Body Movements (GBM): 2 Tone (FT): 2 Amniotic Fluid Volume (AFV): 2 TOTAL SCORE: IMPRESSION: Normal biophysical profile of 11/15. Electronically Signed: Gilmar Nath MD at 11:15 EDT , Service support , STUDY: FIRST TRIMESTER OBSTETRICAL ULTRASOUND REASON FOR EXAM: Female, 30 years old WELL BEING -- CX LENGTH LMP: 01/09/2020. TECHNIQUE: Transvaginal TECHNICAL QUALITY: Adequate. PRIOR ULTRASOUND: None. FINDINGS: Cervical length measures 3.3 cm. US/Biophysical Prof W/O Non Stres IMPRESSION: Cervical length measures 3.3 cm. Electronically Signed: Gilmar Nath MD at 11:21 EDT , Service support ,
== END ==
PROVIDERS: PCP Family Medicine; Referring Provider Obstetrics & Gynecology; Visit Provider Obstetrics & Gynecology
DX: O24.410 Gestational diabetes mellitus in pregnancy, diet controlled (principal); Z3A.00 Weeks of gestation of pregnancy not specified
CPT/HCPCS: 76817; 76819

== ENCOUNTER → 2020-09-17 11:58 | Outpatient (CLI) | payer OTHER, MEDICAID, SELFPAY ==
[2020-09-17 11:29] VITALS: BMI 56.4
--- NOTE | 2020-09-17 12:03 | US_ITS ---
STUDY: OBSTETRICAL ULTRASOUND - BIOPHYSICAL PROFILE REASON FOR EXAM: Female, 30 years old nonreactive NST LMP: 01/09/2020. PRIOR ULTRASOUND: Comparison is made with prior study dated 09/08/2020. TECHNIQUE: Transabdominal TECHNICAL QUALITY: Adequate. FINDINGS: There is a single intrauterine fetus. The fetus is in a cephalic presentation. There is demonstrated cardiac activity with a heart rate of 123 bpm. There is increased amniotic fluid consistent with polyhydramnios. The largest amniotic fluid pocket measures 10.6 cm. The amniotic fluid index (INÉS) is 30 cm. The placenta is anterior in location and is not low lying. There are Grade 2 placental changes. Age by LMP: 37 weeks, 0 days. KWAME by LMP: 10/15/2020. BIOPHYSICAL PROFILE: Breathing Movements (FBM): 2 Gross Body Movements (GBM): 2 Tone (FT): 2 Amniotic Fluid Volume (AFV): 2 TOTAL SCORE: 8 / 8 US/Biophysical Prof W/O Non Stres IMPRESSION: Normal biophysical profile of 8/8. Polyhydramnios. Electronically Signed: Gilmar Nath MD at 13:43 EDT , Service support ,
== END ==
PROVIDERS: PCP Family Medicine; Referring Provider Obstetrics & Gynecology; Visit Provider Obstetrics & Gynecology
DX: O09.90 Supervision of high risk pregnancy, unspecified, unspecified trimester (principal); O28.8 Other abnormal findings on antenatal screening of mother; Z3A.00 Weeks of gestation of pregnancy not specified
CPT/HCPCS: 76819; 87081

== ENCOUNTER → 2020-09-21 14:48 | Outpatient (CLI) | payer OTHER, MEDICAID, SELFPAY ==
[2020-09-17 11:29] VITALS: BMI 56.4
== END ==
PROVIDERS: PCP Family Medicine; Referring Provider Obstetrics & Gynecology; Visit Provider Obstetrics & Gynecology
DX: Z11.59 Encounter for screening for other viral diseases (principal)
CPT/HCPCS: 87635; C9803; U0005; U0003

== ENCOUNTER 2020-09-22 14:33 | Inpatient (IN) | payer OTHER, MEDICAID, SELFPAY ==
[2020-09-22] VITALS (22 sets, daily range): BP systolic 118–150; BP diastolic 70–90; PULSE 57–91; RESP 16–18; TEMP 35.1–36.6; O2SAT 97–100; BMI 56.4; BMI 58.7
[2020-09-22 09:01] LABS: Hematocrit 29.8 % (37-47); Hemoglobin 9.4 g/dL (12.0-15.0); Mean Corp Hgb Conc 31.5 g/dL (32-36); Mean Corpuscular Hgb 25.3 pg (27.0-32.0); Mean Corpuscular Volume 80.3 fL (81-99); Mean Platelet Vol. 9.5 fl (6.2-12.0); Platelet Count 166 K/mm3 (150-450); RBC Distribution Width CV 15.8 % (11.6-14.6); RBC Distribution Width SD 45.4 fl (35.1-43.9); Red Blood Count 3.71 M/mm3 (4.2-5.4); White Blood Count 5.9 K/mm3 (4.4-11.0)
[2020-09-22 09:08] LABS: Protein:Creat Ratio 366 mg/g CRE (0-200)
[2020-09-22 09:18] LABS: ALB/GLOB Ratio 0.6 RATIO (0.9-2.4); AST(SGOT) 21 U/L (15-37); Alanine Aminotransfer ALT/SGPT 8 U/L (13-56); Albumin, Serum 2.1 g/dL (3.2-5.0); Alkaline Phosphatase 123 U/L (45-117); Anion Gap 6 (5-15); BUN 9 mg/dL (7-18); BUN/Creat Ratio 7.8 RATIO (10-20); Calcium,Total 8.1 mg/dL (8.5-10.1); Chloride 112 mmol/L (98-107); Creatinine, Serum 1.15 mg/dL (0.55-1.02); EST Glomerular Filtration Rate 59 mL/min (>60); Est Glom Filt Rate - Afr Amer 71 mL/min (>60); Estimated Creatinine Clearance 69.56 ml/min; Globulin 3.4 g/dL (2.2-4.2); Glucose 119 mg/dL (74-106); Potassium 3.7 mmol/L (3.5-5.1); Protein, Total 5.5 g/dL (6.4-8.2); Sodium Level 141 mmol/L (136-145)
--- NOTE | 2020-09-22 10:29 | OB.TRI.PN_ITS ---
Progress Notes Date of Service: 09/22/20 Progress Note: Patient presents for triage evaluation secondary to elevated bps and protein FHT: 130 Moderate variability reactive no decelerations category I tracing [place]: no regular Contractions Assessment and plan: pree labs WNL, all normal bps here in triage. Reactive NST, reassuring maternal and status patient discharged to home to follow-up for cs monday. See problem list details for additional plan information. Laboratory Studies: Laboratory Tests 09/22/20 09/22/20 09/22/20 Range/Units 08:53 08:53 08:00 WBC 5.9 (4.4-11.0) K/mm3 RBC 3.71 L (4.2-5.4) M/mm3 Hgb 9.4 L (12.0-15.0) g/dL Hct 29.8 L (37-47) % MCV 80.3 L (81-99) fL MCH 25.3 L (27.0-32.0) pg MCHC 31.5 L (32-36) g/dL RDW Std Deviation 45.4 H (35.1-43.9) fl RDW Coeff of Janay 15.8 H (11.6-14.6) % Plt Count 166 (150-450) K/mm3 MPV 9.5 (6.2-12.0) fl Sodium 141 (136-145) mmol/L Potassium 3.7 (3.5-5.1) mmol/L Chloride 112 H (98-107) mmol/L Carbon Dioxide 23.0 (21.0-32.0) mmol/L Anion Gap 6 (5-15) BUN 9 (7-18) mg/dL Creatinine 1.15 H (0.55-1.02) mg/dL Estim Creat Clear Calc 69.56 ml/min Est GFR (MDRD) Af Amer 71 (>60) mL/min Est GFR (MDRD) Non-Af 59 L (>60) mL/min BUN/Creatinine Ratio 7.8 L (10-20) RATIO Glucose 119 H (74-106) mg/dL Calcium 8.1 L (8.5-10.1) mg/dL Total Bilirubin 0.20 (0.20-1.00) mg/dL AST 21 (15-37) U/L ALT 8 L (13-56) U/L Alkaline Phosphatase 123 H (45-117) U/L Total Protein 5.5 L (6.4-8.2) g/dL Albumin 2.1 L (3.2-5.0) g/dL Globulin 3.4 (2.2-4.2) g/dL Albumin/Globulin Ratio 0.6 L (0.9-2.4) RATIO U Random Total Protein 37.0 H (<11.9) mg/dL Urine Creatinine 101.00 (NO RANGE EST.) mg/dL Protein/Creatinin Ratio 366 H (0-200) mg/g CRE
--- NOTE | 2020-09-22 14:41 | HP.PCM.OB_ITS ---
HPI - General General Date of Admission: 09/22/20 HPI Narrative JAMARI POTETR, is a 30 F who presents with preeclampsia with severe features due to renal insufficiency. Patient developed proteinuria at the end of and today has had increasing edema and mildly elevated blood pressures. Cr is increasing and now 1.15. Maternal- medicine was consulted and recommended immediate delivery. 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 PCOS (polycystic ovarian syndrome) Home Medications multivitamin no.47-iron fum 27 mg-folate no.1 1 mg-dha 300 mg capsule 1 cap PO DAILY 03/12/20 [History Last Taken 08/20/20] famotidine 20 mg PO DAILY 05/24/20 [History Last Taken 08/19/20] blood sugar diagnostic #10 each 07/22/20 [Rx Last Taken Unknown] blood-glucose meter #1 each 07/22/20 [Rx Last Taken Unknown] lancets #100 each 07/22/20 [Rx Last Taken Unknown] pen needle, diabetic 32 gauge x 5/32 #150 each 07/23/20 [Rx Last Taken Unknown] insulin degludec [Tresiba FlexTouch U-200] 74 unit SC DAILY 08/20/20 [History Last Taken 08/19/20] insulin lispro 200 unit/mL (3 mL) subcutaneous pen 40 unit SUBCUT QACLUNCH ml 08/20/20 [History Last Taken 08/20/20] insulin lispro 200 unit/mL (3 mL) subcutaneous pen 48 unit SUBCUT QACDINNER ml 08/20/20 [History Last Taken 08/19/20] breast pump #1 ea 08/24/20 [Rx Last Taken Unknown] Allergy/AdvReac Type Severity Reaction Status Date / Time doxycycline AdvReac Intermediate vomiting/na Verified 09/22/20 09:00 usea Family History Sister Asthma Diabetes Graves disease Mother Arthritis Surgical History Cervical cerclage suture present H/O dilation and curettage Social History adopted: No household members: family housing: house number of children: 1 current occupational status: employed current occupation: [employer] Smoking Status: Never smoker second hand exposure: No alcohol intake: never substance use type: does not use seatbelt use: always do you feel safe at home: Yes additional social history: Spouse Justino Heart History 4 Elective abortions Hx Para 1 Spontaneous abortions 1 Hx # Term Pregnancies 1 Ectopic pregnancies Hx # Pregnancies 1 Multiple births # of living children 1 Past Pregnancies Del. Date Name GA/Weeks Outcome Route Bth Weight Gen Labor Lgth Anesthesia Del Locatn Provider FOB Unknown 2016 37 live - full term 7 lbs 3 oz . Female spinal [place] [facility] Dr. Barrera Unknown 2015- Danika 21 still Female [place] Delivery Date: h/o GDM; unexplained bleeding at 26 weeks; pre e Ángela Ruther[facility] Delivery Date: PPROM- incompetent cervix Ángela [facility] Visit Details Expected Delivery Route/Plan RCD 09/25 at 1200 with GP : [] BC: [] Special requests: [] Plans flu vaccine: [] tdap vaccine: [] rhogam: [] LARC form signed: [] Problem list reviewed and updated with the most current plan of care details and appropriate orders placed. Relevant counseling for the gestational age provided. Continue routine care and follow up unless otherwise noted in visit notes/problem list details OB Flowsheet Initial Weight: Not Recorded Date -?-?-?-?-?-?-?-?-?-?-?-?- EGA Weight BP Urine Prot -?-?-?-?-?-?-?-?-?-?-?-?- Glucose FHR FuHt Pres Dilation -?-?-?-?-?-?-?-?-?-?-?-?- Effaced St Visit Note 03/19/20 -?-?-?-?-?-?-?-?-?-?-?-?- 10w 0d 289 lb 2 oz 120/80 -?-?-?-?-?-?-?-?-?-?-?-?- 160 -?-?-?-?-?-?-?-?-?-?-?-?- GP - Dated by 9w US. Denies cramping or bleeding. 04/15/20 -?-?-?-?-?-?-?-?-?-?-?-?- 13w 6d 300 lb 122/84 Negative -?-?-?-?-?-?-?-?-?-?-?-?- Negative 150 -?-?-?-?-?-?-?-?-?-?-?-?- GP - no cramping or bleeding. Nl NT. NIPT repeated by MFM. MFM stopped lovenox. Did not recommend mahi. Anatomy scan ordered. 05/13/20 -?-?-?-?-?-?-?-?-?-?-?-?- 17w 6d 312 lb 4 oz 132/80 Trac e -?-?-?-?-?-?-?-?-?-?-?-?- Negative 155 -?-?-?-?-?-?-?-?-?-?-?-?- GP - Admitted at [facility] for bleeding and found to have large hematoma. Scheduled with MFM next Monday. Discussed with Dr. Faust - stopped ASA, recommend modified bedrest. Recommend weekly US. Aware if has bleeding more than a pad an hour, would have to consider delivery regardless of gestational age. 05/21/20 -?-?-?-?-?-?-?-?-?-?-?-?- 19w 0d 312 lb 134/76 -?-?-?-?-?-?-?-?-?-?-?-?- 160 -?-?-?-?-?-?-?-?-?-?-?-?- GP - no cramping . +FM. Having dark brown bleeding, but no bright red. Saw Dr. Monroe Monday. Plan expectant management. Will see MFM next week to evaluate TROY for size - was stable on 06/03/20 -?-?-?-?-?-?-?-?-?-?-?-?- 20w 6d 322 lb 4 oz 128/94 Nega tive -?-?-?-?-?-?-?-?-?-?-?-?- Negative 150 -?-?-?-?-?-?-?-?-?-?-?-?- GP - occasional cramping. Still having brown discharge that has been limiting using vaginal progesterone. Fluid appears normal. Discussed testing starting at 28w. 06/18/20 -?-?-?-?-?-?-?-?-?-?-?-?- 23w 0d 330 lb 4 oz 138/88 Nega tive -?-?-?-?-?-?-?-?-?-?-?-?- 100 g/dL 160 -?-?-?-?-?-?-?-?-?-?-?-?- GP - bleeding st able. Denies LOF, DFM, ctx. US today shows subjectively normal fluid. Plan twice weekly testing starting at 28w - Mondays with MFM and in our office. 07/01/20 -?-?-?-?-?-?-?-?-?-?-?-?- 24w 6d 332 lb 6 oz 130/76 Nega tive -?-?-?-?-?-?-?-?-?-?-?-?- Negative 155 -?-?-?-?-?-?-?-?-?-?-?-?- GP - no further bleeding. No LOF, DFM, ctx. GCT next visit. 07/20/20 -?-?--?-?-?-?-?-?-?-?-?-?- 27w 4d 340 lb 4 oz 126/72 Nega tive -?-?-?-?-?-?-?-?-?-?-?-?- 1000 g/dL 152 -?-?-?-?-?-?-?-?-?-?-?-?- MH-work in for R UQ pain. GOod FM. NO VB, LOF, CTX. Consult SM: GB US and pre E labs. 07/22/20 -?-?-?-?-?-?-?-?-?-?-?-?- 27w 6d 338 lb 2 oz 116/78 Nega tive -?-?-?-?-?-?-?-?-?-?-?-?- Negative 150 29 -?-?-?-?-?-?-?-?-?-?-?-?- GP - no ctx, lof , VB, DFM. Having vaginal irritation - exam consistent with yeast infection. RUQ pain resolved after treating constipation. Failed GCT with glucose high enough diagnostic for diabetes. Testing supplies ordered. Referral sent to endocrinology. 07/30/20 -?-?-?-?-?-?-?-?-?-?-?-?- 29w 0d 341 lb 120/62 Trace -?-?-?-?-?-?-?-?-?-?-?-?- 100 g/dL 150 -?-?-?-?-?-?-?-?-?-?-?-?- GP - NST nonreac tive, BPP ordered 08/12/20 -?-?-?-?-?-?-?-?-?-?-?-?- 30w 6d 343 lb 4 oz 118/84 Nega tive -?-?-?-?-?-?-?-?-?-?-?-?- Negative 140 -?-?-?-?-?-?-?-?-?-?-?-?- GP - add on for cramping. Has now resolved. One possible contraction on NST. [place] otherwise quiet. No LOF, VB, DFM. Given abdominal cerclage in place, CL ordered to ensure no evidence of PTL or funneling 08/20/20 -?-?-?-?-?-?-?-?-?-?-?-?- 32w 0d 344 lb 344 lb 140/82 140/82 Negative -?-?-?-?-?-?-?-?-?-?-?-?- Negative -?-?-?-?-?-?-?-?-?-?-?-?- to l and d for R OM plus and additional monitoring 08/27/20 -?-?-?-?-?-?-?-?-?-?-?-?- 33w 0d 345 lb 120/88 Negative -?-?-?-?-?-?-?-?-?-?-?-?- Negative -?-?-?-?-?-?-?-?-?-?-?-?- NST only reactiv e 09/03/20 -?-?-?-?-?-?-?-?-?-?-?-?- 34w 0d 347 lb 138/82 Negative -?-?-?-?-?-?-?-?-?-?-?-?- Negative 150 -?-?-?-?-?-?-?-?-?-?-?-?- GP - no ctx, LOF , VB, DFM. NST reactive. 09/10/20 -?-?-?-?-?-?-?-?-?-?-?-?- 35w 0d 353 lb 122/86 Negative -?-?-?-?-?-?-?-?-?-?-?-?- Negative 140 -?-?-?-?-?-?-?-?-?-?-?-?- NST only-reactiv e 09/17/20 -?-?-?-?-?-?-?-?-?-?-?-?- 36w 0d 360 lb 4 oz 130/88 -?-?-?-?-?-?-?-?-?-?-?-?- 140 37 Cephalic -?-?-?-?-?-?-?-?-?-?-?-?- GP - No LOF, VB, DFM, ctx. Unable to perform NST due to excessive movement - BPP ordered. GBS done. 09/22/20 -?-?-?-?-?-?-?-?-?-?-?-?- 36w 5d 142/100 Trace -?-?-?-?-?-?-?-?-?-?-?-?- Negative -?-?-?-?-?-?-?-?-?-?-?-?- To [facility] for christina r evaluation. 09/22/20 -?-?-?-?-?-?-?-?-?-?-?-?- 36w 5d 375 lb 123/76 123/74 122/74 127/77 132/88 135/84 131/90 -?-?-?-?-?-?-?-?-?-?-?-?- -?-?-?-?-?-?-?-?-?-?-?-?- NST FHR Rate Baby A Baseline: 130 Variability:: Moderate Accelerations:: 15 x 15 Decelerations:: None NST Reactive:: Yes FHR Category:: Category I Uterine Activity:: irregular ROS Constitutional Constitutional: Reports systems reviewed and no addt'l complaints, except as documented Eyes Eyes: Denies change in vision ENT HEENT: Reports systems reviewed and no addt'l complaints, except as documented; Denies headache(s) Cardiovascular Cardiovascular: Reports systems reviewed and no addt'l complaints, except as documented; Denies chest pain or dyspnea Respiratory/Chest Respiratory/Chest: Reports systems reviewed and no addt'l complaints, except as documented Gastrointestinal Gastrointestinal: Reports systems reviewed and no addt'l complaints, except as documented; Denies abdominal pain Genitourinary Genitourinary: Reports systems reviewed and no addt'l complaints, except as documented, contractions Details: present (irregular) and movement Details: present; Denies dysuria or genital lesions Musculoskeletal Musculoskeletal: Reports systems reviewed and no addt'l complaints, except as documented Neurologic Neurologic: Reports systems reviewed and no addt'l complaints, except as documented Endocrine Endocrinology: Reports systems reviewed and no addt'l complaints, except as documented Vital Signs Vital Signs Vital Signs: 09/22/20 08:36 09/22/20 08:47 09/22/20 09:02 Pulse Rate 85 81 74 Blood Pressure 123/76 H 123/74 H 122/74 H BP Systolic 123 123 122 BP Diastolic 76 74 74 09/22/20 09:17 09/22/20 09:32 09/22/20 09:47 Pulse Rate 71 71 77 Blood Pressure 127/77 H 132/88 H 135/84 H BP Systolic 127 132 135 BP Diastolic 77 88 84 09/22/20 10:03 Pulse Rate 81 Blood Pressure 131/90 H BP Systolic 131 BP Diastolic 90 Weight Weight: 375 lb Body Mass Index (BMI) 58.7 Physical Exam Const alert, oriented x3, no apparent distress and healthy appearing HEENT normocephalic and moist oral mucous membranes Head and Scalp: atraumatic Neck full ROM, no lymphadenopathy, supple and thyroid normal General: trachea midline Lymph Lymphatic: no lymphadenopathy noted Chest inspection of chest normal Resp normal respiratory effort Cardio regular rate GI normal to inspection, nondistended, normoactive bowel sounds, soft to palpation and non-tender Inspection: gravid external exam normal Manual OB Exam: estimated gestational size appropriate, presentation cephalic, dilated, effaced and station Extremity normal to inspection General Extremity: Negative for edema Skin no rashes or lesions noted Neuro no focal motor deficits and deep tendon reflexes 2+ bilaterally Motor Exam: strength 5/5 throughout and clonus absent Psych mental status grossly normal Labs Labs Labs: Blood Type A POSITIVE Antibody Screen NEGATIVE Hct 29.8 % (37-47) L Hgb 9.4 g/dL (12.0-15.0) L Obstetrics US Rubella IgG Antibody Reactive (Nonreactive) Hep Bs Antigen Non-Reactive (Nonreactive) Neisseria gonorrhoeae DNA (CHEVY) Negative (Negative) HIV 1&2 Antibody Non-Reactive (Nonreactive) C.trachomatis DNA (PCR) Negative (Negative) Glucose 1 Hr 50 gm 364 mg/dL (70-140) H Assessment & Plan (1) Supervision of high risk , antepartum: COMMENT: KWAME 10/15/20 Boy! Duc Tolentino PC: Danika(mar) Brooke Spouse: Justino (2) : QUALIFIERS: Weeks of gestation: 36 weeks Qualified Code(s): Z3A.36 - 36 weeks gestation of COMMENT: Desires genetic testing- low risk male; and NT scan with MFM; declines carrier testing , GBS negative (3) resulting from in vitro fertilization: QUALIFIERS: Trimester: second trimester Qualified Code(s): O09.812 - Supervision of resulting from assisted reproductive technology, second trimester COMMENT: Plan for echo. Initially on lovenox per MICK - stopped by MFM. growth 07/09 81% (4) H/O pre-eclampsia in prior , currently : COMMENT: delivery at 37 weeks in previous . On ASA. (5) H/O gestational diabetes in prior , currently : COMMENT: Required insulin. Early 1h GCT ordered. (6) Cervical cerclage suture present: QUALIFIERS: Trimester: second trimester Qualified Code(s): O34.32 - Maternal care for cervical incompetence, second trimester COMMENT: transabd cerclage (7) PCOS (polycystic ovarian syndrome): (8) History of premature rupture of membranes (PPROM): COMMENT: still at 21 weeks due to cervical insufficiency. Has abdominal cerclage in place. Plan MFM referral. (9) History of stillbirth in currently patient: QUALIFIERS: Trimester: third trimester Qualified Code(s): O09.293 - Supervision of with other poor reproductive or obstetric history, third trimester COMMENT: PPROM at 21 weeks (10) Hx of PTL ( labor), current : QUALIFIERS: Trimester: third trimester Qualified Code(s): O09.213 - Supervision of with history of pre-term labor, third trimester COMMENT: at 21 weeks. Discussed progesterone with MFM. MFM did not recommend Mahi. (11) H/O section: COMMENT: 2017 for abdominal cerclage. Plan RCD at 37w per MFM. scheduled 09/25 @ 12 w/GP (12) Subchorionic hemorrhage of placenta: QUALIFIERS: Trimester: third trimester Fetus number: single or unspecified fetus Qualified Code(s): O41.8X30 - Other specified disorders of amniotic fluid and membranes, third trimester, not applicable or unspecified; O46.8X3 - Other antepartum hemorrhage, third trimester COMMENT: Admitted at [facility] 05/10. Found to have subchorionic bleed measuring [id number]. Patient to see MFM 05/19. Plan modified bedrest. Stopped ASA. Plan weekly US to evaluate adequate fluid and viability. No longer needing wkly MFM. Plan weekly AFIs and NSTs starting at 28w. (13) Proteinuria affecting : QUALIFIERS: Trimester: third trimester Qualified Code(s): O12.13 - Gestational proteinuria, third trimester COMMENT: 24 hour urine is ordered. (14) Gestational diabetes mellitus (GDM): QUALIFIERS: Gestational diabetes mellitus control: diet-controlled Trimester: third trimester Qualified Code(s): O24.410 - Gestational diabetes mellitus in , diet controlled COMMENT: 1h GCT 360. Testing supplies ordered. Following with Dr. Godinez. On insulin. Q4 growths. Twice weekly testing. nl BPP 09/14/20 (15) Polyhydramnios affecting : COMMENT: mild poly by MVP (8.2cm) normal INÉS 21.3c, 08/10 us 28.1 CM, 09/17 us 30CM (16) 34 weeks gestation of : COMMENT: COVID negative (17) Preeclampsia, severe: COMMENT: renal insufficiency complicating mildly elevated bps, discussed with MFM recommend immediate delivery PLAN: recommend proceeding with immediate delivery plan RLTCS. monitor bps and plan magnesium sulfate only if severely elevated bps. monitor BS per protocol.
[2020-09-22] MEDS: Acetaminophen 500 MG Tablet 1000 MG PO ×2 (15:07→22:10)
[2020-09-22] MEDS: Lactated Ringers 1,000 ML 999 ML IV (15:15)
--- NOTE | 2020-09-22 15:18 | EX.PCM.OBRPT ---
Assessment & Plan (1) Preeclampsia, severe: COMMENT: renal insufficiency complicating mildly elevated bps, discussed with MFM recommend immediate delivery (2) Polyhydramnios affecting : COMMENT: mild poly by MVP (8.2cm) normal INÉS 21.3c, 08/10 us 28.1 CM, 09/17 us 30CM (3) Gestational diabetes mellitus (GDM): QUALIFIERS: Gestational diabetes mellitus control: diet-controlled Trimester: third trimester Qualified Code(s): O24.410 - Gestational diabetes mellitus in , diet controlled COMMENT: 1h GCT 360. Testing supplies ordered. Following with Dr. Godinez. On insulin. Q4 growths. Twice weekly testing. nl BPP 09/14/20 (4) Cervical cerclage suture present: QUALIFIERS: Trimester: second trimester Qualified Code(s): O34.32 - Maternal care for cervical incompetence, second trimester COMMENT: transabd cerclage (5) Supervision of high risk , antepartum: COMMENT: KWAME 10/15/20 Boy! Duc Tolentino PC: Danika(mar) Brooke Spouse: Justino (6) : QUALIFIERS: Weeks of gestation: 36 weeks Qualified Code(s): Z3A.36 - 36 weeks gestation of COMMENT: Desires genetic testing- low risk male; and NT scan with MFM; declines carrier testing , GBS negative (7) resulting from in vitro fertilization: QUALIFIERS: Trimester: second trimester Qualified Code(s): O09.812 - Supervision of resulting from assisted reproductive technology, second trimester COMMENT: Plan for echo. Initially on lovenox per MICK - stopped by MFM. growth 07/09 81% (8) H/O pre-eclampsia in prior , currently : COMMENT: delivery at 37 weeks in previous . On ASA. (9) Sterilization: Maternal Data Information KWAME Calculator Estimated Delivery Date Method Current WG Current Estimate 10/15/20 Ultrasound #1 36w 5d Final KWAME Source: LMP Details Operative Information Date of Procedure: 09/22/20 Pre-Operative Diagnosis: Previous , see problem list Post-Operative Diagnosis: same Indications for : Repeat Elective and Desires elective sterilization Classification: Scheduled Procedure Type: bilateral salpingectomy manager medicare #1: Monica Correa Type of Anesthesia: Spinal Special Medications: none Antibiotic Given: Ancef 3 grams IV x1 Drain: Gomez to straight drain Estimated Blood Loss: 1200 Fluids Replaced: crystalloid Findings Description of Procedure: Spinal anesthesia was placed without difficulty. Gomez catheter was placed. The patient was placed in the dorsal supine position with leftward tilt. Patient was prepped and draped in the normal sterile fashion. Pfannenstiel skin incision was made with the scalpel and carried through to the underlying layer of fascia with the scalpel. Fascia was nicked in the midline and the incision extended laterally. The rectus bellies were dissected off superiorly and inferiorly with out complication both sharply and bluntly. The peritoneum was entered digitally. The incision was stretched and a low transverse uterine incision was made with the scalpel. When the water was broken there is an extremely large amount of fluid and was attempted to deliver the head however due to the thick abdominal wall fundal pressure was not effective and therefore a vacuum was placed on the top of the head to be able to provide traction to bring down the head more. Rectus muscles were cut bilaterally with bandage scissors to enlarge the operative exposure. 1 pop-off with a vacuum was experienced and then the head was able to be delivered with fundal pressure after the Crystal straps were released and the head was down lower thanks to the vacuum. Head was delivered followed by the anterior and posterior shoulders the rest the infant. The cord was clamped and cut and the was handed off to awaiting nurse. The placenta was delivered spontaneously immediately following and was noted to be intact and have a three-vessel cord. The uterus was exteriorized cleared of all clots and debris, and the incision was closed in a single layer closure using #1 Monocryl. The ovaries and fallopian tubes were noted to be within normal limits. Patient had desired sterilization and was counseled preoperatively regarding irreversibility and permanency. Therefore bilateral fallopian tubes were elevated and transected across using a LigaSure device starting proximally to distally without complication the entire fallopian tubes were removed. The uterus was returned to the maternal abdomen and gutters were cleared of all clots and debris. Alex was applied over the incision due to its raw appearance and hemostasis was noted. Inferior epigastrics were lacerated on the left side and therefore they were identified and sutured with 3-0 Monocryl inferiorly and superiorly for good hemostasis. The peritoneum was closed with 3-0 Monocryl in a running fashion. Additional [id number] sutures were used on the right side over the muscle to obtain hemostasis. Gloves were changed prior to fascial closure. Fascia was closed with 0 PDS in a running fashion. Subcutaneous tissue was copiously irrigated and reapproximated with 3-0 Monocryl and the skin was closed with 3-0 Monocryl in a subcuticular fashion. Mepilex dressing was applied without complication. Patient was taken to recovery in stable condition. It was discussed with the patient that based on the clinical information obtained during this encounter, combined with her history, at this time I would recommend cesareans for future deliveries if further pregnancies are desired. Amniotic Membrane Rupture Type: Artificial Amniotic Fluid Description: Clear Placenta Disposition: [facility] Cord Vessel Description: 3 Vessels Cord Entanglement: None Infant A Gender: Male Delayed Cord Clamping: Yes Complications Risks of Surgery Discussed w/Patient: Bleeding, Infection, Need for Future C-Sections, Permanency and Injury to surrounding structure(s) including bowel and bladder Vaginal Delivery Complication Complications: None Admit VTE Documentation VTE Present on Admission: No VTE Mechan Device Prophylaxis: SCD's Procedures Urinary/Genital 52xxx-59xxx: 13239 Delivery global pk Multi Select Codes Urinary/Genital Urinary/Genital CPT Codes: 43691 C/S+TL (bilateral salpingectomy)
[2020-09-22 15:32] LABS: Absolute Lymphocyte Count 1.64 X10^3/uL (0.83-4.51); Absolute Neutrophil Count 5.1 X10^3/uL (2.0-7.7); Basophil# 0.02 X10^3/uL; Basophil% 0.3 % (0-1); Eosinophil# 0.14 X10^3/uL; Eosinophils% 1.8 % (0-5); Hematocrit 32.8 % (37-47); Hemoglobin 10.6 g/dL (12.0-15.0); Lymphocyte # 1.64 X10^3/ul (0.83-4.51); Lymphocyte % 21.2 % (19-41); Mean Corp Hgb Conc 32.3 g/dL (32-36); Mean Corpuscular Hgb 25.7 pg (27.0-32.0); Mean Corpuscular Volume 79.4 fL (81-99); Mean Platelet Vol. 9.4 fl (6.2-12.0); Monocyte# 0.71 X10^3/uL; Monocyte% 9.2 % (0-10); NRBC Flagged by Analyzer 0 % (0-5); Neutrophil # 5.14 X10^3/uL (2.7-7.7); Neutrophil % 66.3 % (47-70); Platelet Count 182 K/mm3 (150-450); RBC Distribution Width CV 15.9 % (11.6-14.6); RBC Distribution Width SD 45.2 fl (35.1-43.9); Red Blood Count 4.13 M/mm3 (4.2-5.4); White Blood Count 7.7 K/mm3 (4.4-11.0)
[2020-09-22] MEDS: Sodium Citrate/Citric Acid 30 ML UDC PO (15:55)
--- NOTE | 2020-09-22 16:30 | FALS_PTH ---
PATIENT: JAMARI POTTER LOC: [facility] U#:[id number] AGE/SX: 30/F ROOM: WP007 RE09/22/[address]: Dr. Patsy Giles MD : 1990 BED: 1 DIS: 09/24/2020 SPEC #: [id number] RECD: 09/22/20 19:35 STATUS: CHARLENE LARSONOctavio #: [id number] BI: 09/22/20 16:[address]: Patsy Giles DEPT: SURGICAL PATHOLOGY RECD BY: Princess Grimaldo ENTERED: 09/23/20 10:42 SP TYPE: FALL TUBES OTHR DR: Dr. Ricardo Nixon, DO Idalia Montes De Oca, CALLIE-Christian Tissues: Fallopian tube Procedures: Surgery Specimen Level II HEADER OPERATION: Tubal ligation PRE-OP DIAGNOSIS: Sterilization TISSUE SUBMITTED: Fallopian tubes, left tube with suture MICROSCOPIC DIAGNOSIS Bilateral fallopian tubes, salpingectomy: Bilateral fallopian tubes, no pathologic diagnosis. SHAILA:sabina 09/24/2020 MICROSCOPIC DESCRIPTION Slides are reviewed. GROSS DESCRIPTION Received in fixative is one container labeled with the patient's name and designated bilateral fallopian tubes, suture left tube. The specimen consists of bilateral fallopian tubes including fimbrial ends. The right fallopian tube measures 6 cm in length and 0.6 cm in diameter and the left fallopian tube measures 6 cm in length and 0.6 cm in diameter. Sections reveal unremarkable cut surfaces. Liquor Maker sections are submitted in two cassettes as follows: 1 ? right fallopian tube, 2 ? left fallopian tube. / SHAILA:sabina 09/23/20 TC:4 CPT: 95147 x2
--- NOTE | 2020-09-22 17:11 | CPS ---
CALLED [facility] AND TALKED TO PITER COMBS AND TOLD HER ABOUT ABG AND VBG UNDER MOM INSTEAD OF BABY.
--- NOTE | 2020-09-22 17:16 | DCINST_ITS ---
Discharge Instructions Diet Discharge Diet: No restrictions Activity Discharge Activity: May Not Drive (for 2 weeks or while taking narcotic pain medications.), May Shower and May Take a Tub Bath (in 7 days) May shower in (days): 0 May resume sexual activity in: 4-6 weeks Weight Bearing Status: Full weight bearing Lifting Restrictions: 20 pounds Dressing / Incision Call your doctor if your incision/area has: Continuous Slow Oozing, Sudden Increased Bleeding, Increased Pain/ Swelling, Increased Redness and Foul Smelling Discharge Call your doctor if you observe: Fever of 101 or Higher and Using more than 1 pad per hour (for 2 hours) Suture Line Care: Avoid Pulling/Pushing and Avoid Pinching/Bending Cleanse incision/area with: Soap & Water and Keep Dressing Clean & Dry Follow Up Care Please Follow Up With: Patsy Giles MD When: Call [phone] to make an appointment for an incision check in 1-2 weeks. Test Results: Test results from this visit will be discussed in further detail at your follow-up appointment, if applicable. Discharge Plan Admission Admit Date/Time: 09/22/20 14:33 Attending Provider: Patsy Giles Primary Care Provider: Ricardo Nixon Consulting Providers: Idalia Montes De Oca PHOTOGRAPHY AND PRINTS CURATOR Instructions Patient Instructions: Kick Counts, ED False Labor, OB Triage: Return to Hospital or Notify Physician if you Experience: Discharge Orders/Prescriptions Prescriptions: No Action PNV-DHA 27 mg iron-1 mg -300 mg capsule 1 cap PO DAILY RF: 0 (DME) blood-glucose meter Misc See Rx Instructions .ROUTE .MEDSUPPLY Qty: 1 RF: 0 (DME) lancets Misc See Rx Instructions .ROUTE .MEDSUPPLY Qty: 100 RF: 4 (DME) Blood Glucose Test Strip See Rx Instructions .ROUTE .MEDSUPPLY Qty: 10 RF: 4 Humalog KwikPen Insulin 200 unit/mL (3 mL) insulin pen 40 unit subcut QACLUNCH RF: 0 Humalog KwikPen Insulin 200 unit/mL (3 mL) insulin pen 48 unit subcut QACDINNER RF: 0 (DME) pen needle, diabetic [BD Ultra-Fine Yvonne Pen Needle] 32 gauge x 5/32 needle See Rx Instructions .ROUTE .MEDSUPPLY Qty: 150 RF: 5 famotidine 20 MG tablet 20 mg PO DAILY RF: 0 Tresiba FlexTouch U-200 200 unit/mL (3 mL) insulin pen 74 unit SC DAILY RF: 0 (DME) breast pump Device See Rx Instructions .ROUTE .MEDSUPPLY Qty: 1 RF: 0 Referrals / Follow Up: Ricardo Nixon DO [Primary Care Provider] -
[2020-09-22] MEDS: Oxytocin 30 units/NS 500 ml 30 UNITS/500 ML IV.SOLN 167 UNITS IV (17:30)
[2020-09-22 17:51] LABS: Bedside Glucose 57 mg/dL (70-110)
[2020-09-22] MEDS: Ketorolac 30 MG/ML Syringe IV (18:09)
[2020-09-22] MEDS: HYDROmorphone 1 MG/ML Syringe IV ×2 (18:30→20:42)
[2020-09-22 19:06] LABS: Bedside Glucose 58 mg/dL (70-110)
[2020-09-22 19:06] LABS: Bedside Glucose 67 mg/dL (70-110)
[2020-09-22 20:22] LABS: Pathology Specimen OB SEE PATHOLOGY REPORT
[2020-09-22] MEDS: Carboprost Tromethamine 250 MCG/ML Ampul IM (20:40)
[2020-09-22] MEDS: Lactated Ringers 1,000 ML 100 ML IV (21:00)
[2020-09-22 21:12] LABS: Hematocrit 29.4 % (37-47); Hemoglobin 9.4 g/dL (12.0-15.0); Mean Corpuscular Hgb 25.8 pg (27.0-32.0); Mean Corpuscular Volume 80.8 fL (81-99); Mean Platelet Vol. 9.8 fl (6.2-12.0); Platelet Count 163 K/mm3 (150-450); RBC Distribution Width CV 15.8 % (11.6-14.6); RBC Distribution Width SD 45.2 fl (35.1-43.9); Red Blood Count 3.64 M/mm3 (4.2-5.4)
[2020-09-23] VITALS (7 sets, daily range): BP systolic 126–143; BP diastolic 70–90; PULSE 86–104; RESP 16–18; TEMP 36.2–36.6; O2SAT 99–100
[2020-09-23] MEDS: Ketorolac 30 MG/ML Syringe IV ×2 (00:08→06:16)
[2020-09-23] MEDS: 0.9% Saline Lock 10 ML Syringe IV ×2 (00:08→06:16)
[2020-09-23] MEDS: Acetaminophen 500 MG Tablet 1000 MG PO ×4 (04:24→21:49)
[2020-09-23] MEDS: Mag Hydrox/Al Hydrox/Simeth 30 ML UDC PO ×2 (04:24→10:50)
[2020-09-23] MEDS: Enoxaparin 40 MG/0.4 ML Syringe SC ×2 (04:48→21:50)
[2020-09-23 05:21] LABS: Bedside Glucose 99 mg/dL (70-110)
[2020-09-23 05:31] LABS: Hemoglobin 9.3 g/dL (12.0-15.0); Mean Corp Hgb Conc 32.1 g/dL (32-36); Mean Corpuscular Hgb 25.6 pg (27.0-32.0); Mean Corpuscular Volume 79.9 fL (81-99); Mean Platelet Vol. 9.4 fl (6.2-12.0); Platelet Count 159 K/mm3 (150-450); RBC Distribution Width CV 15.7 % (11.6-14.6); RBC Distribution Width SD 45.4 fl (35.1-43.9); Red Blood Count 3.63 M/mm3 (4.2-5.4)
[2020-09-23 05:50] LABS: AST(SGOT) 31 U/L (15-37); Alanine Aminotransfer ALT/SGPT 7 U/L (13-56); Creatinine, Serum 1.22 mg/dL (0.55-1.02); EST Glomerular Filtration Rate 55 mL/min (>60); Est Glom Filt Rate - Afr Amer 66 mL/min (>60); Estimated Creatinine Clearance 65.57 ml/min; Uric Acid 5.7 mg/dL (2.6-6.0)
--- NOTE | 2020-09-23 07:54 | PCM.PN.OB ---
Subjective Subjective Patient doing well without complaints. Tolerating PO. Ambulating and voiding without difficulty. feeding well. Denies chest pain, shortness of breath, calf pain/swelling, fevers, chills, lightheadedness. BP and glucose stable. Baby SCN (sugars) doing well. Objective Data Objective Data Vital Signs: Vital Signs Temp Pulse Resp BP Pulse Ox 97.7 F L 96 18 142/83 H 97 09/23/20 05:10 09/23/20 05:10 09/23/20 05:10 09/23/20 05:10 09/22/20 20:40 Oxygen Delivery Method Room Air Weight: 375 lb Body Mass Index (BMI) 58.7 Intake & Output: Intake and Output for Last 24 Hours 09/21/20 09/22/20 09/23/20 23:59 23:59 23:59 Intake Total 1815 / 2615 2111.67 / 2111.67 Output Total 300 / 475 350 / 350 Balance 1515 / 2140 1761.67 / 1761.67 Lab / Micro Data Result Diagrams: 09/23/20 05:20 09/23/20 05:20 Labs: Laboratory Results - last 24 hr 09/22/20 09/22/20 09/22/20 08:00 08:53 08:53 WBC 5.9 RBC 3.71 L Hgb 9.4 L Hct 29.8 L MCV 80.3 L MCH 25.3 L MCHC 31.5 L RDW Std Deviation 45.4 H RDW Coeff of Janay 15.8 H Plt Count 166 MPV 9.5 Immature Gran % (Auto) Neut % (Auto) Lymph % (Auto) [place] % (Auto) Eos % (Auto) Baso % (Auto) Absolute Neuts (auto) Absolute Lymphs (auto) Nucleated RBC % Sodium 141 Potassium 3.7 Chloride 112 H Carbon Dioxide 23.0 Anion Gap 6 BUN 9 Creatinine 1.15 H Estim Creat Clear Calc 69.56 Est GFR (MDRD) Af Amer 71 Est GFR (MDRD) Non-Af 59 L BUN/Creatinine Ratio 7.8 L Glucose 119 H Uric Acid Calcium 8.1 L Total Bilirubin 0.20 AST 21 ALT 8 L Alkaline Phosphatase 123 H Total Protein 5.5 L Albumin 2.1 L Globulin 3.4 Albumin/Globulin Ratio 0.6 L U Random Total Protein 37.0 H Urine Creatinine 101.00 Protein/Creatinin Ratio 366 H POC Glucose Blood Type Antibody Screen 09/22/20 09/22/20 09/22/20 15:10 15:10 15:14 WBC 7.7 RBC 4.13 L Hgb 10.6 L Hct 32.8 L MCV 79.4 L MCH 25.7 L MCHC 32.3 RDW Std Deviation 45.2 H RDW Coeff of Janay 15.9 H Plt Count 182 MPV 9.4 Immature Gran % (Auto) 1.200 H Neut % (Auto) 66.3 Lymph % (Auto) 21.2 [place] % (Auto) 9.2 Eos % (Auto) 1.8 Baso % (Auto) 0.3 Absolute Neuts (auto) 5.1 Absolute Lymphs (auto) 1.64 Nucleated RBC % 0 Sodium Potassium Chloride Carbon Dioxide Anion Gap BUN Creatinine Estim Creat Clear Calc Est GFR (MDRD) Af Amer Est GFR (MDRD) Non-Af BUN/Creatinine Ratio Glucose Uric Acid Calcium Total Bilirubin AST ALT Alkaline Phosphatase Total Protein Albumin Globulin Albumin/Globulin Ratio U Random Total Protein Urine Creatinine Protein/Creatinin Ratio POC Glucose 57 L Blood Type A POSITIVE Antibody Screen NEGATIVE 09/22/20 09/22/20 09/22/20 18:02 18:25 21:00 WBC 9.0 RBC 3.64 L Hgb 9.4 L Hct 29.4 L MCV 80.8 L MCH 25.8 L MCHC 32.0 RDW Std Deviation 45.2 H RDW Coeff of Janay 15.8 H Plt Count 163 MPV 9.8 Immature Gran % (Auto) Neut % (Auto) Lymph % (Auto) [place] % (Auto) Eos % (Auto) Baso % (Auto) Absolute Neuts (auto) Absolute Lymphs (auto) Nucleated RBC % Sodium Potassium Chloride Carbon Dioxide Anion Gap BUN Creatinine Estim Creat Clear Calc Est GFR (MDRD) Af Amer Est GFR (MDRD) Non-Af BUN/Creatinine Ratio Glucose Uric Acid Calcium Total Bilirubin AST ALT Alkaline Phosphatase Total Protein Albumin Globulin Albumin/Globulin Ratio U Random Total Protein Urine Creatinine Protein/Creatinin Ratio POC Glucose 58 L 67 L Blood Type Antibody Screen 09/23/20 09/23/20 09/23/20 05:14 05:20 05:20 WBC 9.0 RBC 3.63 L Hgb 9.3 L Hct 29.0 L MCV 79.9 L MCH 25.6 L MCHC 32.1 RDW Std Deviation 45.4 H RDW Coeff of Janay 15.7 H Plt Count 159 MPV 9.4 Immature Gran % (Auto) Neut % (Auto) Lymph % (Auto) [place] % (Auto) Eos % (Auto) Baso % (Auto) Absolute Neuts (auto) Absolute Lymphs (auto) Nucleated RBC % Sodium Potassium Chloride Carbon Dioxide Anion Gap BUN Creatinine 1.22 H Estim Creat Clear Calc 65.57 Est GFR (MDRD) Af Amer 66 Est GFR (MDRD) Non-Af 55 L BUN/Creatinine Ratio Glucose Uric Acid 5.7 Calcium Total Bilirubin AST 31 ALT 7 L Alkaline Phosphatase Total Protein Albumin Globulin Albumin/Globulin Ratio U Random Total Protein Urine Creatinine Protein/Creatinin Ratio POC Glucose 99 Blood Type Antibody Screen ABG Data ABG results: ABG 09/22/20 09/22/20 16:47 16:54 Specimen Type Cancelled Cancelled Sample Site Cancelled Cancelled O2 % Cancelled Cancelled Cord VBG pH Cancelled Cancelled Cord VBG pCO2 Cancelled Cancelled Cord VBG pO2 Cancelled Cancelled Cord VBG HCO3 Cancelled Cancelled Cord VBG Total CO2 Cancelled Cancelled Cord VBG Base Excess Cancelled Cancelled Cord VBG O2 Sat Cancelled Cancelled Respiration Rate Cancelled Cancelled O2 Delivery Device Cancelled Cancelled Vent Mode Cancelled Cancelled Mean Airway Pressure Cancelled Cancelled POC PEEP Cancelled Cancelled Peak Inspir Pressure Cancelled Cancelled POC Pressure Suppt Cancelled Cancelled Pressure High Cancelled Cancelled Pressure Low Cancelled Cancelled Time High Cancelled Cancelled Time Low Cancelled Cancelled EPAP Cancelled Cancelled IPAP Cancelled Cancelled Crit Call To/Read Back Cancelled Cancelled Blood Gas Notified Whom Cancelled Cancelled Blood Gas Notified Time Cancelled Cancelled Clinical Comments Cancelled Cancelled Physical Exam Const alert and oriented x3 HEENT normocephalic Eyes PERRL Neck full ROM Resp normal respiratory effort GI soft to palpation GI Narrative: FF below U. Dressing dry and intact, old dark drainage only Palpation: tender other (appropriately) Assessment & Plan (1) delivery due to maternal disorder: COMMENT: RLTCS and BS SM preeclampsia severe renal insufficiency abdominal cerclage (2) Gestational diabetes mellitus (GDM): QUALIFIERS: Gestational diabetes mellitus control: diet-controlled Trimester: third trimester Qualified Code(s): O24.410 - Gestational diabetes mellitus in , diet controlled COMMENT: 1h GCT 360. Testing supplies ordered. Following with Dr. Godinez. On insulin. Q4 growths. Twice weekly testing. BPP 09/14/20 (3) Preeclampsia, severe: QUALIFIERS: Trimester: unspecified trimester Qualified Code(s): O14.10 - Severe pre-eclampsia, unspecified trimester COMMENT: renal insufficiency complicating mildly elevated bps, discussed with MFM recommend immediate delivery PLAN: s/p LTCS PPD # 1 1. routine post care 2. breast feeding- support given 3. rh positive 4. rubella immune
[2020-09-23] MEDS: Senna/Docusate Sodium 1 Tablet PO (11:04)
[2020-09-23] MEDS: Famotidine 20 MG Tablet PO (13:28)
[2020-09-23] MEDS: Naproxen 500 MG Tablet PO ×2 (13:28→23:30)
[2020-09-23] MEDS: oxyCODONE 5 MG Tablet PO (20:36)
[2020-09-24 00:55] VITALS: BP 129/71; RESP 18
== END 2020-09-24 00:50 | disposition home or self-care (01) | DRG 785 ==
PROVIDERS: Nurse Practitioner Women's Health; Admitting Provider Obstetrics & Gynecology; PCP Family Medicine; Referring Provider Obstetrics & Gynecology; Visit Provider Obstetrics & Gynecology
DX: O34.219 Maternal care for unspecified type scar from previous cesarean delivery (principal); O14.14 Severe pre-eclampsia complicating childbirth; Z3A.36 36 weeks gestation of pregnancy; Z37.0 Single live birth; O99.284 Endocrine, nutritional and metabolic diseases complicating childbirth; E28.2 Polycystic ovarian syndrome; O24.424 Gestational diabetes mellitus in childbirth, insulin controlled; O40.3XX0 Polyhydramnios, third trimester, not applicable or unspecified; Z30.2 Encounter for sterilization
CPT/HCPCS: 59025; 59050; 80053; 82565; 82570; 82803; 82962; 84156; 84450; 84460; 84550; 85025; 85027; 86850; 86900; 86901; 88302; 99218; 99251; J7120; A4216; G0378; G0463; J2405

== ENCOUNTER → 2020-11-03 17:51 | Outpatient (CLI) | payer MEDICAID, SELFPAY ==
[2020-11-03 15:11] VITALS: BMI 51.8
[2020-11-09 13:06] LABS: HPV APTIMA, High Risk Negative (Negative)
== END ==
PROVIDERS: Visit Provider Obstetrics & Gynecology
DX: Z12.4 Encounter for screening for malignant neoplasm of cervix (principal)
CPT/HCPCS: 87624; 88175; G0145

== ENCOUNTER → 2022-07-20 | Outpatient (CLI) | payer MEDICAID, SELFPAY ==
[2022-07-20 08:54] LABS: Absolute Lymphocyte Count 1.84 X10^3/uL (0.83-4.51); Absolute Neutrophil Count 2.8 X10^3/uL (2.0-7.7); Basophil# 0.03 X10^3/uL; Basophil% 0.6 % (0-1); Eosinophil# 0.15 X10^3/uL; Eosinophils% 2.9 % (0-5); Hemoglobin 13.2 g/dL (12.0-15.0); Lymphocyte # 1.84 X10^3/ul (0.83-4.51); Lymphocyte % 35.6 % (19-41); Mean Corpuscular Hgb 29.8 pg (27.0-32.0); Mean Corpuscular Volume 90.3 fL (81-99); Mean Platelet Vol. 9.6 fl (6.2-12.0); Monocyte# 0.37 X10^3/uL; Monocyte% 7.2 % (0-10); NRBC Flagged by Analyzer 0 % (0-5); Neutrophil # 2.77 X10^3/uL (2.7-7.7); Neutrophil % 53.5 % (47-70); Platelet Count 221 K/mm3 (150-450); RBC Distribution Width CV 13.2 % (11.6-14.6); RBC Distribution Width SD 43.3 fl (35.1-43.9); Red Blood Count 4.43 M/mm3 (4.2-5.4); White Blood Count 5.2 K/mm3 (4.4-11.0)
[2022-07-20 09:43] LABS: Hemoglobin A1c 4.6 % (3.8-5.6)
[2022-07-20 09:57] LABS: Vitamin D,25 Hydroxy 48.6 ng/mL
[2022-07-20 10:18] LABS: Estradiol 85.4 pg/mL; Prolactin 6.7 ng/mL; T3 Uptake 33 % (30-39); Thyroid Stim Hormone (TSH) 1.32 uIU/mL (0.358-3.74)
[2022-07-22 15:52] LABS: Magnesium 2.3 mg/dL (1.6-2.6)
== END | disposition home or self-care (01) ==
LOC: PAVLAB 08:38
PROVIDERS: Anesthesiology; PCP Family Medicine; Referring Provider Obstetrics & Gynecology; Visit Provider Obstetrics & Gynecology
DX: Z01.818 Encounter for other preprocedural examination (principal); N92.6 Irregular menstruation, unspecified
CPT/HCPCS: 36415; 82306; 82627; 82670; 83036; 83735; 84146; 84443; 84479; 85025; 82626

== ENCOUNTER → 2022-07-22 | Outpatient (CLI) | payer MEDICAID, SELFPAY ==
--- NOTE | 2022-07-22 11:48 | US_ITS ---
STUDY: ULTRASOUND OF THE FEMALE PELVIS - COMPLETE REASON FOR EXAM: Female, 32 years old. Menorrhagia, abnormal uterine bleeding -- please note location of abdominal cerclage LMP: 07/17/2022 TECHNIQUE: Transabdominal and Transvaginal TECHNICAL QUALITY: Adequate. COMPARISON: None. FINDINGS: The uterus is anteverted and is retroflexed The uterus measures 10.5 x 6.5 x 5.1 cm. Normal uterine cervix. The endometrium measures 5.3 mm in thickness, and is hyperechoic. There is no demonstrated endometrial mass. There is no demonstrated myometrial mass. I.U.D. - The patient does not have an I.U.D. There is a cervical cerclage measuring 3.8 cm from the external os The right ovary is visualized. The right ovary measures 3.4 x 2.5 x 2.9 cm. There is no right ovarian cyst or ovarian mass. There is no visualized right adnexal mass or complex lesion. There is normal arterial and normal venous vascularity. The left ovary is visualized. The left ovary measures 3.5 x 2.4 x 2.2 cm. There is no left ovarian cyst or ovarian mass. There is no visualized left adnexal mass or complex lesion. There is normal arterial and normal venous vascularity. There is no fluid in the cul-de-sac. The bladder is incompletely distended US/Pelvic (Non ) IMPRESSION: Cervical cerclage measures 3.8 cm from the external os. Sonographically normal uterus and ovaries, no demonstrated free fluid Electronically Signed: Enmanuel Rea MD at 14:18 EDT ,
== END | disposition home or self-care (01) ==
LOC: OPUS 11:47
PROVIDERS: PCP Family Medicine; Referring Provider Obstetrics & Gynecology; Visit Provider Obstetrics & Gynecology
DX: N93.9 Abnormal uterine and vaginal bleeding, unspecified (principal)
CPT/HCPCS: 76830; 76856

== ENCOUNTER 2022-08-23 07:40 | Observation (INO) | payer MEDICAID, SELFPAY ==
[2022-08-23] VITALS (15 sets, daily range): BP systolic 98–130; BP diastolic 60–85; PULSE 56–106; RESP 10–18; TEMP 35.9–37.1; O2SAT 96–100; BMI 30.9
[2022-08-23] MEDS: Acetaminophen 500 MG Tablet 1000 MG PO ×3 (06:36→19:58)
[2022-08-23] MEDS: Gabapentin 600 MG Tablet PO (06:36)
[2022-08-23] MEDS: Magnesium 1 GM over 15 mins IV (06:38)
[2022-08-23] MEDS: Lactated Ringers 1,000 ML 40 ML IV (06:38)
[2022-08-23 07:16] LABS: Bedside Glucose 88 mg/dL (74-106)
--- NOTE | 2022-08-23 07:25 | HP.PCM_ITS ---
History and Physical Date of Admission: 08/23/22 Intake Vital Signs ? 07/25/2312:12 07/25/2312:19 Height 5 ft 7 in 5 ft 7 in Weight: ? 204 lb 4 oz BMI ? 32.0 BP ? 113/76 Intake Visit Reasons:?Pre-Op consult Lens Cutter Required: No Is patient in pain?: No Allergies doxycycline Adverse Reaction (Intermediate, Verified 07/25/22 13:19) vomiting/nausea Medications ascorbate calcium (vitamin C) 500 mg tablet 500 mg PO DAILY 07/20/22 [History Confirmed 07/25/22] biotin 1 mg capsule 1 mg PO DAILY 07/20/22 [History Confirmed 07/25/22] cholecalciferol (vitamin D3) 50 mcg (2,000 unit) capsule 50 mcg PO DAILY 07/20/22 [History Confirmed 07/25/22] mecobalamin (vitamin B12) 1,000 mcg chewable tablet 1,000 mcg PO DAILY 07/20/22 [History Confirmed 07/25/22] multivitamin 1 tab PO DAILY 07/20/22 [History Confirmed 07/25/22] omeprazole magnesium 20 mg capsule,delayed release (Acid Software Engineering Project Manager (omeprazole)) 20 mg PO DAILY 07/20/22 [History Confirmed 07/25/22] Post menopausal: No Patient : No : No PFSH Medical History? 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 Cervical cerclage suture present Delivery by section H/O bilateral salpingectomy H/O dilation and curettage History of egg donation History of surgery S/P gastric bypass Family History? Sister Asthma Diabetes Graves diseaseMother Arthritis Social History? adopted:? No household members:? family housing:? house number of children:? 1 current occupational status:? employed current occupation:? [employer] Smoking Status:? Never smoker second hand exposure:? No alcohol intake:? never substance use type:? does not use seatbelt use:? always do you feel safe at home:? Yes additional social history:? Spouse? ? Justino? ? Sly HAMMOND Pre-Op consult Details: JAMARI POTTER is a 32 year old who presents for a robotic hysterectomy. She states that since her gastric bypass she has lost over 100 pounds and has had more and more days of bleeding that are extremely heavy. She is not interested in OCPs or IUD and states that she would rather have a hysterectomy. SHe has a history of a 21 week loss due to cervical incompetence. After her loss she underwent surgery for placement of an abdominal cervical cerclage. Her next two pregnancies were delivered via section. After her last section she had her tubes removed. She has FINDINGS: The uterus is anteverted and is retroflexed? The uterus measures 10.5 x 6.5 x 5.1 cm.? Normal uterine cervix.? The endometrium measures 5.3 mm in thickness, and is hyperechoic.? There is no demonstrated endometrial mass. There is no demonstrated myometrial mass. ? I.U.D. - The patient does not have an I.U.D. There is a cervical cerclage measuring 3.8 cm from the external os The right ovary is visualized.? The right ovary measures 3.4 x 2.5 x 2.9 cm.? There is no right ovarian cyst or ovarian mass.? There is no visualized right adnexal mass or complex lesion. There is normal arterial and normal venous vascularity. The left ovary is visualized.? The left ovary measures 3.5 x 2.4 x 2.2 cm. There is no left ovarian cyst or ovarian mass.? There is no visualized left adnexal mass or complex lesion.? There is normal arterial and normal venous vascularity. There is no fluid in the cul-de-sac. The bladder is incompletely distended US/Pelvic (Non ) IMPRESSION: Cervical cerclage measures 3.8 cm from the external os. ? Sonographically normal uterus and ovaries, no demonstrated free fluid History ? ? ? 4 ? Elective abortions ? Hx Para ? ? ? 2 ? Spontaneous abortions ? ? ? 1 Hx # Term Pregnancies ? ? ? 2 ? Ectopic pregnancies ? Hx # Pregnancies ? ? ? 1 ? Multiple births ? # of living children ? ? ? 2 Past Pregnancies Del. Date Name GA/Weeks Outcome Route Bth Weight Infant Gen Labor Lgth Anesthesia Del Locatn Provider FOB Unknown Brooke? ? 2016 37 live - full term 7 lbs 3 oz. Female ? spinal [facility] Dr. Barrera ? Unknown Danika 21 still ? Female ? ? [facility] ? ? 09/22/20 Duc 36 live - full term 8lbs 11oz Male ? spinal [facility] ? Delivery Date:?? Last Updated by: Ángela Rutherford ? ? ? h/o GDM; unexplained bleeding at 26 weeks; pre e Delivery Date:?? Last Updated by: Ángela Rutherford ? ? ? PPROM- incompetent cervix Delivery Date: 09/22/20? Last Updated by: Carolina Johnson ? ? ? RLTSC BS preeclampsia with severe features renal insufficiency cervical insufficiency GDMA2 ROS Const ROS Unobtainable: All systems reviewed & are unremarkable except as noted in H Resp Resp: Reports system reviewed and no additional complaints, except as documented; Denies cough GI GI: Reports as per HPI Psych Psych: Reports system reviewed and no additional complaints, except as documented Exam Const General: cooperative, healthy appearing, comfortable and no acute distress Resp Effort & Inspection: normal respiratory effort Skin General: no rashes or lesions noted Psych Appearance: grossly normal Speech and Movement: speech and movement normal Coding Level of Care Code Off vis,est,level 4 Diagnoses Abnormal uterine bleeding? N93.9 Cervical cerclage suture present? O34.32 ? ? ? Trimester: second trimester Assessment and Plan Assessment and Plan (1) Abnormal uterine bleeding: ?Status:?Acute (2) Cervical cerclage suture present: ?Status:?Acute ?Qualifiers: ?Trimester:?second trimester? Qualified Code(s):?O34.32 - Maternal care for cervical incompetence, second trimester ?Comment: transabd cerclage Plan After discussing the patient's diagnosis and treatment plan options, patient wishes to proceed with surgical management. plan for total robotic hysterectomy, bilateral salpingectomy, cystoscopy, removal of cerclage. She understands that there is a higher chance of cystotomy due to long standing abdominal cerclage present below the bladder flap. ? I have discussed with the patient the risks, benefits, and alternatives of the procedure which include but are not limited to risks of anesthesia, bleeding, infection, possible damage to bowel, bladder, or surrounding vasculature which could lead to additional surgery to evaluate any complications.? Patient agrees to procedure and wishes to proceed.? ACOG/uptodate references given for additional information regarding procedure. Gilma Neri DO
--- NOTE | 2022-08-23 07:30 | HYST_PTH ---
PATIENT: JAMARI POTTER LOC: [facility]3 U#:[id number] AGE/SX: 32/F ROOM: [facility]319 RE08/23/[address]: Dr. Gilma Neri DO : 1990 BED: 1 DIS: 08/24/2022 SPEC #: [id number] RECD: 08/23/22 10:10 STATUS: CHARLENE PALMA #: [id number] BI: 08/23/22 07:[address]: Gilma Neri DEPT: SURGICAL PATHOLOGY RECD BY: Armen Choe ENTERED: 08/23/22 12:48 SP TYPE: HYSTERECT OTHR DR: Dr. Ricardo Nixon DO Tissues: Uterus, NOS Procedures: Surgery Specimen Level V HEADER OPERATION: ERAS, total robotic hysterectomy, removal of abdominal cerclage PRE-OP DIAGNOSIS: Abnormal uterine bleeding, cervical cerclage suture present TISSUE SUBMITTED: Uterus, cervix MICROSCOPIC DIAGNOSIS Uterus, hysterectomy: Cervix ? mild chronic inflammation and nabothian cysts. Endometrium ? proliferative endometrium. Myometrium ? focal adenomyosis. AM:sabina 08/24/2022 MICROSCOPIC DESCRIPTION Slides are reviewed. GROSS DESCRIPTION Received in fixative is one container labeled with the patient's name and designated uterus, cervix. The specimen consists of a hysterectomy specimen consisting of uterus with cervix weighing 106 gm and measuring 10.0 x 7.0 x 4.5 cm. The serosal surface is coyle, glistening. The ectocervical mucosa is unremarkable. The external os is oval in contour. A suture is present at the junction of cervix and body of the uterus The endocervical canal measures 3.0 cm in length and the endocervical mucosa is coyle, glistening and unremarkable. The triangular endometrial cavity measures 4.5 cm in length and up to 2.5 cm in width. The endometrium is coyle, glistening and unremarkable, and measures 0.2 cm in thickness. Sections of the uterine wall do not reveal any mass lesion and measures up to 2.5 cm in thickness. Aquatic Laborer sections are submitted in six cassettes as follows: 1 - anterior cervix, 2 - posterior cervix, 3 & 4 - anterior uterine wall, 5 & 6 - posterior uterine wall. / SHAILA:sabina 08/23/2022 TC:5 CPT: 31293
[2022-08-23] MEDS: Cefazolin 2 GM in 0.9% Normal Saline 100 ML IV (08:01)
[2022-08-23] MEDS: Bupivacaine 0.25% 30 ML Vial (09:29)
--- NOTE | 2022-08-23 09:30 | OP.PCM_ITS ---
Problems Associated Problem List Diagnoses (1) Abnormal uterine bleeding: (2) Cervical cerclage suture present: Operative Report Date of Procedure: 08/23/22 Preoperative diagnosis: Pelvic pain, menorrhagia, history of bilateral salpingectomy, history of abdominal cervical cerclage, history of 2 prior sections Postoperative diagnosis: Pelvic pain, menorrhagia, history of bilateral salpingectomy, history of abdominal cervical cerclage, history of 2 prior sections Procedure: Total robotic hysterectomy, removal of cervical cerclage and cystoscopy Anesthesia: General endotracheal intubation Estimated blood loss: 30 cc Urine output: 150 cc Drains: None Implanted material: None Complications: None Findings: 10-1/2 cm size uterus, normal appearing ovaries and tubes. On exploration of the abdominal cavity the uterus, adnexa, bowel, and liver were found to be normal. Cystoscopy showed no evidence of leaking at approximately 250 cc of normal saline, positive ureteral orifices and jet flow are seen and no suture material was appreciated in the bladder. Specimens removed: Uterus and cervix Reason for surgery: This is a 32-year-old G 3, P1202 who presented to my office with history of pelvic pain and heavy periods. She has a history of 2 prior sections. Prior to her sections she had a 21-week loss due to cervical incompetence. Laparoscopic abdominal cerclage was placed and left in situ. The planned procedure is for a robotic hysterectomy the risks benefits and alternatives were discussed with the patient the patient had a clear understanding of the procedure and a consent form was signed. Procedure: The patient was placed in the dorsal low lithotomy position and prepped and draped in the normal sterile fashion both abdominally and in the perineum. Her legs were placed in stirrups a Gomez catheter was inserted into the urethra without difficulty. A weighted speculum was placed in the vagina and a single- tooth tenaculum was used to grasp the anterior lip of the cervix. An advincula uterine manipulator was inserted through the cervix without complication. It was then tied into place at the 2 and 10:00 locations on the cervix. Gloves were changed and attention was turned towards the abdomen. Approximately 23 cm above the pubic symphysis in the midline, and after Marcaine injection, a 8 mm incision was made. An 8 mm trocar was inserted through the laparoscope, then inserted into the abdomen under direct visualization using the laparoscope. Good abdominal placement was noted and no complications were appreciated. An air seal device was utilized to create pneumoperitoneum. At 12 cm lateral to the m idline on the left and right sides 8 mm accessory ports were placed. Next a left upper quadrant 8 mm hospital aides and assistants teacher port site was placed. The skin was noted to be very pliable and when the insertion of the trocar was made the trocar nicked the peritoneum overlying the inferior vena cava causing a trace amount of blood released from the peritoneum only. No bowel perforation or vessel injury was noted The patient was placed in steep Trendelenburg position. The robot was docked. The hysterectomy was initiated first by taking down the round ligament on each side using the vessel sealer device. The broad ligament was then and taken down using the vessel sealer device. Next the bladder flap was taken down without complication. This was done using monopolar cautery to the level of the cervical vaginal junction. After the bladder flap was created, uterine vessels were then isolated and cauterized using the vessel sealer device and EndoShears. At this point the uterine vessels were taken down further starting from the ascending branch, dissecting along the edges of the cervix to the level of the cervical vaginal junction with hemostasis appreciated. The cerclage was noted to be above the level of the descending branch of the uterine arteries and well above the bladder flap and was therefore left in place. The cervical vaginal junction was then using monopolar cautery in a circumferential pattern across the superior aspect of the cervix. The specimen was delivered through the vagina and sent to pathology. The remaining vaginal cuff was then closed using OV lock suture. This was performed in a running technique. Excellent hemostasis was obtained and good closure was noted. Irrigation was then performed. All operative sites were noted to be hemostatic. A cystoscopy was performed with a 70 degree cystoscope through the urethra into the bladder without complication. The bladder was instilled with approximately 250 cc of normal saline. Intraoperative images were made. Ureteral orifices and jets were identified. No suture material was appreciated in the bladder. The bladder was then drained and cystoscope was removed. The abdominal cavity was again examined using the laparoscope after the robot was undocked. All operative sites were noted to be hemostatic. The trochars were removed under direct visualization without complication and pneumoperitoneum was reduced. At this point the skin was then closed using 4-0 Monocryl subcuticular stitch and sealed with surgical glue. The patient tolerated the procedure well sponge lap and needle counts were correct x2 the patient was taken to the recovery room in stable condition. Multi Select Codes Urinary/Genital Urinary/Genital CPT Codes: 08088 Cystoscopy and 18660 TLH <250gr uterus
--- NOTE | 2022-08-23 09:36 | DCINST_ITS ---
Discharge Instructions Diet Discharge Diet: No restrictions Activity May resume sexual activity in: 6 weeks Weight Bearing Status: Full weight bearing Dressing / Incision Call your doctor if your incision/area has: Continuous Slow Oozing, Sudden Increased Bleeding, Increased Pain/ Swelling, Increased Redness and Foul Smelling Discharge Call your doctor if you observe: Fever of 101 or Higher, Using more than 1 pad per hour, Shortness of breath, Chest pain and Uncontrolled pain Suture Line Care: Avoid Pulling/Pushing and Avoid Pinching/Bending Remove Dressing in: 1 week (if present) Cleanse incision/area with: Soap & Water and Keep Dressing Clean & Dry Follow Up Care Please Follow Up With: Gilma Neri DO When: Call to make an appointment with your doctor for a postop visit in 2 and 6 weeks Test Results: Test results from this visit will be discussed in further detail at your follow- up appointment, if applicable. Discharge Plan Admission Admit Date/Time: 08/23/22 07:40 Primary Reason for Your Visit: hysterectomy Attending Provider: Gilma Neri Primary Care Provider: Ricardo Nixon Discharge Orders/Prescriptions Prescriptions: New oxycodone-acetaminophen [Percocet] 5-325 mg tablet 1 tab PO Q4H PRN (Reason: pain) 7 Days Qty: 30 0RF Rx Instructions: 1-2 tabs q 4 hrs as needed for pain Continued multivitamin Tablet 1 tab PO DAILY ascorbate calcium (vitamin C) 500 mg tablet 500 mg PO DAILY cholecalciferol (vitamin D3) 50 mcg (2,000 unit) capsule 50 mcg PO DAILY omeprazole magnesium [[employer] (omeprazole)] 20 mg capsule,delayed release(DR/EC) 20 mg PO DAILY biotin 1 mg capsule 1 mg PO DAILY mecobalamin (vitamin B12) 1,000 mcg tablet,chewable 1,000 mcg PO DAILY Other Ambulatory Orders: Type & Screen - PAT ONLY (Routine) Timeframe: [id number] Facility: [facility] - Location: Laboratory Ordered By: Dr. Patsy Giles Referrals / Follow Up: Ricardo Nixon DO [Primary Care Provider] - Disposition Disposition (needs filled in before D/C Order can be placed): Home, Self Care
[2022-08-23] MEDS: Lactated Ringers 1,000 ML 70 ML IV ×2 (11:00→20:02)
[2022-08-23] MEDS: Docusate Sodium 100 MG Capsule PO ×2 (14:20→22:34)
[2022-08-23] MEDS: Pantoprazole Sodium 20 MG Tablet PO (16:40)
[2022-08-23] MEDS: Ketorolac 30 MG/ML Syringe IV ×2 (16:40→22:33)
[2022-08-24] MEDS: Acetaminophen 500 MG Tablet 1000 MG PO ×2 (01:15→07:58)
[2022-08-24 04:00] VITALS: BP 101/62; PULSE 80; RESP 16; TEMP 36.9; O2SAT 95
[2022-08-24 07:04] LABS: Hematocrit 35.7 % (37-47); Hemoglobin 11.5 g/dL (12.0-15.0); Mean Corp Hgb Conc 32.2 g/dL (32-36); Mean Corpuscular Hgb 28.5 pg (27.0-32.0); Mean Corpuscular Volume 88.4 fL (81-99); Mean Platelet Vol. 9.6 fl (6.2-12.0); Platelet Count 156 K/mm3 (150-450); RBC Distribution Width SD 39.3 fl (35.1-43.9); Red Blood Count 4.04 M/mm3 (4.2-5.4); White Blood Count 4.7 K/mm3 (4.4-11.0)
--- NOTE | 2022-08-24 07:49 | PN.OBGYN_ITS ---
Subjective Subjective patient is sitting up in bedside chair, has no complaints and wants to go home. She is walking, tolerating regular diet, and voiding. Objective Data Objective Data Vital Signs: Vital Signs Temp Pulse Resp BP Pulse Ox O2 Del Method O2 Flow Rate 98.4 F 80 16 101/62 95 Room Air 4 08/24/22 04:00 08/24/22 04:00 08/24/22 04:00 08/24/22 04:00 08/24/22 04:00 08/24/22 04:00 08/23/22 11:15 Oxygen Flow Rate (L/min) 4 Oxygen Delivery Method Room Air Weight: 197 lb 1.492 oz Body Mass Index (BMI) 30.9 Intake & Output: Intake and Output for Last 24 Hours 08/22/22 08/23/22 08/24/22 23:59 23:59 23:59 Intake Total 3752.33 / 3752.33 Output Total 270 / 970 1100 / 1100 Balance 3482.33 / 2782.33 -1100 / -1100 Lab / Micro Data Result Diagrams: 08/24/22 06:51 Labs: Laboratory Results - last 24 hr 08/24/22 06:51: WBC 4.7, RBC 4.04 L, Hgb 11.5 L, Hct 35.7 L, MCV 88.4, MCH 28.5, MCHC 32.2, RDW Std Deviation 39.3, RDW Coeff of Janay 12.0, Plt Count 156, MPV 9.6 ROS Constitutional Constitutional: Reports systems reviewed and no addt'l complaints, except as d ocumented Eyes Eyes: Denies blurry vision, change in vision, seeing flashes or spots in vision ENT HEENT: Denies dizziness, headache(s), loss taste/smell or sore throat Cardiovascular Cardiovascular: Denies chest pain, dizziness, dyspnea, irregular heart rhythm, leg edema, palpitations, rapid heart rate or vomiting Respiratory/Chest Respiratory/Chest: Denies chest tightness, cough, dyspnea or breast pain Gastrointestinal Gastrointestinal: Denies bloating, constipation, cramping, diarrhea, nausea or vomiting Genitourinary Genitourinary: Reports other Details: Denies vaginal odor, vaginal bleeding, or vaginal discharge ; Denies difficulty urinating or flank pain Musculoskeletal Musculoskeletal: Denies back pain, difficulty walking, joint pain, limited range of motion, muscle cramps or numbness Physical Exam Const alert, oriented x3 and no apparent distress General Appearance: cooperative and comfortable Resp normal respiratory effort Cardio regular rate GI normal to inspection, nondistended, normoactive bowel sounds Palpation: soft Rectal Exam: other Other Details: non-tender. Incision is clean, dry, and intact. Assessment & Plan (1) Status post hysterectomy: PLAN: patient is s/p total robotic hysterectomy POD 1 1. routine ERAS protocol postop care- increase ambulation, encourage oral intake and oral control of pain. lovenox and scds for dvt prophylaxis, patient stable for discharge to home.
[2022-08-24 07:53] VITALS: BP 112/78; PULSE 60; RESP 18; TEMP 36.6; O2SAT 93
[2022-08-24] MEDS: Ketorolac 30 MG/ML Syringe IV (07:58)
[2022-08-24] MEDS: Pantoprazole Sodium 20 MG Tablet PO (07:59)
[2022-08-24] MEDS: Docusate Sodium 100 MG Capsule PO (07:59)
[2022-08-24] MEDS: Enoxaparin 40 MG/0.4 ML Syringe SC (07:59)
== END 2022-08-24 09:30 | disposition home or self-care (01) ==
LOC: SDC 09:36 → MS3 09:36
PROVIDERS: Admitting Provider Obstetrics & Gynecology; PCP Family Medicine; Referring Provider Obstetrics & Gynecology; Visit Provider Obstetrics & Gynecology
PROC: 0UT94ZZ Resection of Uterus, Percutaneous Endoscopic Approach (ICD-10-PCS; CPT 58570; principal; 2022-08-23 07:10)
DX: N93.9 Abnormal uterine and vaginal bleeding, unspecified (principal); N88.3 Incompetence of cervix uteri; K21.9 Gastro-esophageal reflux disease without esophagitis; Z98.84 Bariatric surgery status; R10.2 Pelvic and perineal pain
CPT/HCPCS: 58570; S2900; 00840; J3475; 36415; 82962; 85027; 86850; 86900; 86901; 88307; 96372; 96374; 96376; 99221; J7120; G0378; J2405